=== PATIENT | female | born 1950 | race Caucasian/White ===

== ENCOUNTER 2025-05-26 20:55 | Inpatient (IN) | payer MEDICARE, OTHER ==
[~2025-05-26] VITALS: Ht 170.2 cm; Wt 94.1 kg
--- NOTE | 2025-05-26 21:34 | ED.PDOC ---
[place]. trauma (HPI) HPI Comments 74 y.o female presents to the ED via EMS for a chief complaint of right hip pain s/p mechanical fall today. Patient reports having a trip and fall outside her yard, landed on her right hip and since has limited ROM. patient does mention pain radiates to the upper right leg but does have full ROM to the lower leg and foot on examination. Patient denies any head trauma, neck, back, arm pain. Patient denied any LOC. Chief Complaint: Fall Injury Time Seen by MD: 21:19 Primary Care Provider: CARLK Reviewed notes: Nurses Notes, Medications, Allergies Allergies: Coded Allergies: NO KNOWN ALLERGIES (Unverified , 09/24/16) Information Source: Patient Mode of Arrival: Ambulatory Severity: Moderate Timing: Hours Duration: Since onset Location: (R) Hip, (R) Leg Location of laceration: None Mechanism: Fall Associated signs and symtoms: Other Past Medical History PAST MEDICAL HISTORY: Denies Surgical History: Denies all surgeries FUR COMBER History: No Pertinent FUR COMBER History Family History Family History: Unknown Social History Smoker: Cigarettes Lives In: Home Constitutional: denies: chills, diaphoresis, fatigue, fever, malaise, sweats, weakness, others EENTM: denies: blurred vision, double vision, ear bleeding, ear discharge, ear drainage, ear pain, ear ringing, eye pain, eye redness, hearing loss, mouth pain, mouth swelling, nasal discharge, nose bleeding, nose congestion, nose pain, photophobia, tearing, throat pain, throat swelling, voice changes, others Respiratory: denies: cough, hemoptysis, orthopnea, SOB at rest, shortness of breath, SOB with excertion, stridor, wheezing, others Cardiovascular: denies: chest pain, dizzy spells, diaphoresis, Dyspnea on e xertion, edema, irregular heart beat, left arm pain, lightheadedness, palpitations, PND, syncope, others Gastrointestinal: denies: abdomen distended, abdominal pain, blood streaked bowels, constipated, diarrhea, dysphagia, difficulty swallowing, hematemesis, melena, nausea, poor appetite, poor fluid intake, rectal bleeding, rectal pain, vomiting, others Genitourinary: denies: abnormal vagina bleeding, burning, dyspareunia, dysuria, flank pain, frequency, hematuria, incontinence, pain, , vagina discharge, urgency, others Neurological: denies: dizziness, fainting, headache, left sided numbness, left sided weakness, numbness, paresthesia, pre-existing deficit, right sided numbness, right sided weakness, seizure, speech problems, tingling, tremors, weakness, others Musculoskeletal: reports: others (right hip and leg pain ); denies: back pain, gout, joint pain, joint swelling, muscle pain, muscle stiffness, neck pain Integumetry: denies: bruises, change in color, change in hair/nails, dryness, laceration, lesions, lumps, rash, wounds, others Allergic/Immunocompromised: denies: Difficulty Healing, Frequent Infections, Hives, Itching, others Hematologic/Lymphatic: denies: anemia, blood clots, easy bleeding, easy bruising, swollen glands, others Endocrine: denies: excessive hunger, excessive sweating, excessive thirst, excessive urination, flushing, intolerance to cold, intolerance to heat, unexplained weight gain, unexplained weight loss, others Psychiatric: denies: anxiety, bipolar disorder, depression, hopeless, panic disorder, schizophrenia, sleepless, suicidal, others All Other Systems: Reviewed and Negative Physical Exam General Appearance: Moderate Distress, Normal HEENT: Normal ENT Inspection, Pharynx Normal, TMs Normal Neck: Full Range of Motion, Non-Tender, Normal, Normal Inspection Respiratory: Chest Non-Tender, Lungs Clear, No Accessory Muscle Use, No Respiratory Distress, Normal Breath Sounds Cardiovascular: No Edema, No JVD, No Murmur, No Gallop, Normal Peripheral Pulses, Regular Rate/Rhythm Breast Exam: Deferred Gastrointestinal: No Organomegaly, Non Tender, No Pulsatile Mass, Normal Bowel Sounds, Soft Genitalia: Deferred Pelvic: Deferred Rectal: Deferred Extremities: Tender (right sided hip ), Other (No crepitus to the right hip. Distal CMS intact of the right leg ) Musculoskeletal : Apperance: Normal Neurologic: Alert, headlight adjuster II-XII nml as Tested, No Motor Deficits, Normal Affect, Normal Mood, No Sensory Deficits Cerebellar Function: Normal Reflexes: Normal Skin: Dry, Normal Color, Warm Lymphatic: No Adenopathy Was a procedure done? Was a procedure done?: No Differential Diagnosis Multiple Trauma: Fractures, Contusion X-Ray, Labs, Meds, VS Vital Signs Date Time Temp Pulse Resp B/P (MAP) Pulse Ox O2 Delivery O2 Flow Rate FiO2 05/26/25 21:04 98.0 84 18 97/69 (78) 98 98.0 X-Ray, Labs, Meds, VS Comment CT pelvis: IMPRESSION: 1. Moderately displaced comminuted right intertrochanteric femoral fracture. END IMPRESSION: Patient will be admitted for hip fracture Patient will be given morphine for pain control Vital signs stable Time of 1ST Reevaluation: 21:34 Reevaluation 1ST: Unchanged Patient Education/Counseling: Diagnosis, Treatment, Prognosis Family Education/Counseling: No Family Present Departure 1 Departure Time of Disposition: 00:00 Impression: Primary Impression: Hip fracture, left Qualified Codes: S72.002A - Fracture of unspecified part of neck of left femur, initial encounter for closed fracture Disposition: ADMITTED INPATIENT Condition: Stable Critical Care Note Critical Care Time?: No Stability Stability form required: No I personally scribed for DEANDRE FOSS ([facility] on 05/26/25 at 21:34. Electronically submitted by Yanet Jain ([facility]). DEANDRE FOSS May 26, 2025 21:34
--- NOTE | 2025-05-26 23:32 | DVH ---
History: fall Comparison Study: None Technique: Multidetector spiral CT of the pelvis was performed from iliac crests to pubic symphysis. Axial, coronal and sagittal multiplanar reformats were performed by the technologist on a separate orkstation. Radiation Dose : CT Dose: CTDI volume is 21.72 mGy. Dose-length product is 809.71 mGy*cm Findings: Visualized bowel: Small bowel and colon are normal in caliber and distribution. The appendix is not visualized; however, no secondary findings of acute appendicitis identified. Ascites: Absent Lymphadenopathy: No pelvic or mesenteric lymphadenopathy. Pelvis Wall and Mesentery: Unremarkable. Vasculature: The visualized abdominal aorta is normal in size and caliber. Atherosclerotic vascular c alcifications. Pelvic Organs: Unremarkable Musculoskeletal: Moderately displaced comminuted right intertrochanteric femoral fracture. Bladder: Unremarkable IMPRESSION: 1. Moderately displaced comminuted right intertrochanteric femoral fracture. END IMPRESSION:
[2025-05-27] MEDS: ONDANSETRON HCL 4 MG/2 ML VIAL IV ONE (01:20)
[2025-05-27] MEDS: MORPHINE SULFATE 4 MG/ML SYR/VIAL IV ONE (01:22)
[2025-05-27 03:02] VITALS: PULSE 60; RESP 14; O2SAT 98
[2025-05-27 07:30] VITALS: PULSE 65; RESP 20; O2SAT 100
[2025-05-27 09:20] VITALS: PULSE 70; RESP 25; O2SAT 97
[2025-05-27] MEDS ORDERED: NITROGLYCERIN 0.4 MG SL TAB SL PRN (09:30)
[2025-05-27] MEDS ORDERED: MORPHINE SULFATE INJ 2 MG/ml SYRG IV PRN (09:30)
[2025-05-27] MEDS ORDERED: ACETAMINOPHEN 325 MG TAB PO PRN (09:30)
[2025-05-27] MEDS: ONDANSETRON HCL 4 MG/2 ML VIAL IV PRN (09:40)
[2025-05-27] MEDS: MORPHINE SULFATE 4 MG/ML SYR/VIAL IV PRN (09:40)
[2025-05-27 10:07] LABS: Hematocrit 40.8 % (36.0-46.0); Hemoglobin 14.4 g/dL (12.2-16.2); Mean Corpuscular Hemoglobin 31.5 pg (28.0-32.0); Mean Corpuscular Volume 89.2 fL (80.0-100.0); Nucleated Red Blood Cells % 0.0 %
[2025-05-27 10:22] LABS: Alanine Aminotransferase 12 U/L (7-40); Albumin 4.1 g/dL (3.2-4.8); Alkaline Phosphatase 114 U/L (46-116); Anion Gap 7 (5-15); BUN/Creatinine Ratio 17.2 (10.0-20.0); Blood Urea Nitrogen 16 mg/dL (9-23); Calcium 9.7 mg/dL (8.7-10.4); Chloride 102 mmol/L (98-107); Potassium 4.0 mmol/L (3.5-5.1); Sodium 140 mmol/L (136-145); Total Protein 6.2 g/dL (5.7-8.2)
[2025-05-27 10:24] LABS: Bilirubin, Total 1.7 mg/dL (0.2-1.0); Carbon Dioxide 31 mmol/L (20-31); Glucose 132 mg/dL (74-106)
[2025-05-27 10:30] LABS: Urine Protein, UAD Negative (Negative)
[2025-05-27] MEDS: ENOXAPARIN SOD 40 MG/0.4 ML SYRINGE SC SCH (11:07)
--- NOTE | 2025-05-27 16:46 | DVHHP2 ---
History of Present Illness History of Present Illness 74-year-old female presents to the ED for chief complaint of right hip pain S/P mechanical fall. Patient tripped and fell outside in her yd and landed on her right hip. Patient denies any head trauma neck or back pain. Review of Systems Constitutional: No: Fever, Chills, Sweats, Weakness, Malaise, Other Respiratory: No: Cough, Dry, Shortness of breath, SOB with excertion, Wheezing, Hemoptysis, Pleuritic Pain, Sputum, Wheezing, Other Gastrointestinal: No: Nausea, Vomiting, Abdominal Pain, Diarrhea, Constipation, Melena, Hematochezia, Other Allergies: Coded Allergies: NO KNOWN ALLERGIES (Unverified , 09/24/16) Medications Current Medications Medications Dose Ordered Sig/Latasha Route Start Time Stop Time Status Last Admin Dose Admin Enoxaparin Sodium 40 mg DAILY SC 05/27/25 10:00 05/27/25 11:07 40 MG Acetaminophen 650 mg Q6HP PRN PO 05/27/25 09:30 Nitroglycerin 0.4 mg Q5MINP PRN SL 05/27/25 09:30 Morphine Sulfate 2 mg Q30M PRN IV 05/27/25 09:30 Morphine Sulfate 4 mg Q3HPRN PRN IV 05/27/25 09:30 05/27/25 15:33 4 MG Ondansetron HCl 4 mg Q4HPRN PRN IV 05/27/25 09:30 05/27/25 15:33 4 MG Exam Vital Signs Vital Signs Date Time Temp Pulse Resp B/P (MAP) Pulse Ox O2 Delivery O2 Flow Rate FiO2 05/27/25 16:25 66 15 117/56 05/27/25 15:00 96 05/27/25 10:46 98.1 98.1 05/27/25 09:20 Nasal Cannula* 2 28 General Appearance: Alert, Oriented X3, Cooperative, No acute distress HEENT: Atraumatic Respiratory: Clear to auscultation, Normal air movement Cardiovascular: Regular rate, Normal S1, Normal S2, No murmurs Abdominal: Normal bowel sounds, Soft, No tenderness, No hepatospenomegaly Extremities: No clubbing, No cyanosis, No edema, Normal pulses, No tenderness/swelling Labs/Xrays Labs Test 05/27/25 12:47 05/27/25 09:39 05/27/25 09:18 05/27/25 01:16 Range/Units Troponin I High Sensitivity 4 </=34 ng/L White Blood Count 9.6 4.4-10.8 10^3/uL Red Blood Count 4.58 4.0-5.20 10^6/uL Hemoglobin 14.4 12.2-16.2 g/dL Hematocrit 40.8 36.0-46.0 % Mean Corpuscular Volume 89.2 80.0-100.0 fL Mean Corpuscular Hemoglobin 31.5 28.0-32.0 pg Mean Corpuscular Hemoglobin Concent 35.3 32.0-36.0 g/dL Red Cell Distribution Width 13.6 11.8-14.3 % Platelet Count 566 H 140-450 10^3/uL Mean Platelet Volume 6.3 L 6.9-10.8 fL Neutrophils (%) (Auto) 76.9 37.0-80.0 % Lymphocytes (%) (Auto) 17.0 10.0-50.0 % Monocytes (%) (Auto) 4.6 0.0-12.0 % Eosinophils (%) (Auto) 1.1 0.0-7.0 % Basophils (%) (Auto) 0.4 0.0-2.0 % Neutrophils # (Auto) 7.4 1.6-8.6 10 ^3/uL Lymphocytes # (Auto) 1.6 0.4-5.4 10 ^3/uL Monocytes # (Auto) 0.4 0-1.3 10 ^3/uL Eosinophils # (Auto) 0.1 0-0.8 10 ^3/uL Basophils # (Auto) 0 0-0.2 10 ^3/uL Nucleated Red Blood Cells 0.0 % Sodium Level 140 136-145 mmol/L Potassium Level 4.0 3.5-5.1 mmol/L Chloride Level 102 98-107 mmol/L Carbon Dioxide Level 31 20-31 mmol/L Anion Gap 7 5-15 Blood Urea Nitrogen 16 9-23 mg/dL Creatinine 0.93 0.550-1.02 mg/dL Glomerular Filtration Rate Calc 65 >90 mL/min BUN/Creatinine Ratio 17.2 10.0-20.0 Serum Glucose 132 H 74-106 mg/dL Calcium Level 9.7 8.7-10.4 mg/dL Total Bilirubin 1.7 H 0.2-1.0 mg/dL Aspartate Amino Transferase (AST) 12 L 13-40 U/L Alanine Aminotransferase (ALT) 12 7-40 U/L Alkaline Phosphatase 114 46-116 U/L Total Protein 6.2 5.7-8.2 g/dL Albumin 4.1 3.2-4.8 g/dL Urine Color Yellow Yellow Urine Clarity Clear Clear Urine pH 5.5 5.0-9.0 Urine Specific Agency 1.025 1.001-1.035 Urine Protein Negative Negative Urine Ketones Negative Negative Urine Blood Negative Negative /uL Urine Nitrite Negative Negative Urine Bilirubin Negative Negative Urine Urobilinogen Normal Negative mg/dL Urine Leukocyte Esterase Negative Negative /uL Urine RBC 1 0 - 4 /hpf Urine Microscopic WBC 1 0-5 /HPF Urine Squamous Epithelial Cells Few <5 /hpf Urine Bacteria None seen None Seen /hpf Urine Mucus Few None Seen Urine Glucose Normal Normal mg/dL POC Glucose 173 H 70-106 mg/dl SEPSIS Sepsis Screen Date sepsis recognized/suspect: May 27, 2025 Time Sepsis recognized/suspect: 305 Recent Procedure: No On Antibiotic Therapy: No Respiratory Rate >20: No Heart Rate >90: No Temp<36 C (96.8 F) or >38.3 C: No SBP <90 or MAP <65 mmHG: No New Acute Mental Status Change: No Is the patient on CPAP, BIPAP,: No Physician Orders Allergies (05/27/25 09:18) Enoxaparin Sodium (Lovenox) (05/27/25 10:00) Condition: Fair (05/27/25 09:18) Acetaminophen Tablet (Tylenol Tablet) (05/27/25 09:30) Nitroglycerin Sublingual (Ntrostat Subli (05/27/25 09:30) Morphine Sulfate Injection (05/27/25 09:30) Stat Ekg For Chest Pain (05/27/25 09:18) Notify Of Changes From Base (05/27/25 09:18) Training Engineer For 24 Hours (05/27/25 09:18) Emergency Dysrhythmia Protocol (05/27/25 09:18) Rhythm Strips Once Every Shift (05/27/25:18) Oxygen By Nasal Cannula (05/27/25:18) Morphine Sulfate Injection (7/21/25 09:30) Ondansetron Hcl (Zofran) (05/27/25 09:30) * Orthopedic Consult (05/27/25 09:29) Admit (05/27/25 09:45) Obtain Consent For: (05/27/25 10:20) Obtain Consent For Anesthesia (05/27/25 10:20) Npo (Nothing By Mouth) Diet (05/28/25 Breakfast) Cardiac Diet-2gna,Lofat,Lochol (05/27/25 Lunch) * Cardiology Consult (05/27/25 12:18) Vital Signs Date Time Temp Pulse Resp B/P (MAP) Pulse Ox O2 Delivery O2 Flow Rate FiO2 05/27/25 16:25 66 15 117/56 05/27/25 15:33 65 20 125/65 05/27/25 15:00 65 20 125/65 (85) 96 05/27/25 13:00 58 15 148/64 (92) 100 05/27/25 11:00 67 18 137/70 05/27/25 11:00 66 14 137/70 (92) 96 05/27/25 10:46 98.1 63 19 143/65 (91) 95 98.1 05/27/25 09:40 73 18 154/76 05/27/25 09:22 69 05/27/25 09:20 98.4 70 25 143/68 (93) 97 98.4 05/27/25 09:20 70 25 97 Nasal Cannula* 2 28 Laboratory Tests Test 05/27/25 09:39 White Blood Count 9.6 10^3/uL (4.4-10.8) Medications Medications Dose Ordered Sig/Latasha Route Start Time Stop Time Status Last Admin Dose Admin Enoxaparin Sodium 40 mg DAILY SC 05/27/25 10:00 05/27/25 11:07 40 MG Morphine Sulfate 4 mg Q3HPRN PRN IV 05/27/25 09:30 05/27/25 15:33 4 MG Ondansetron HCl 4 mg Q4HPRN PRN IV 05/27/25 09:30 05/27/25 15:33 4 MG Assessment/Plan Assessment/Plan 1. Right hip fracture Orthopedic consult, pain medication, DVT prophylaxis 2. Hypertension Continue lisinopril 5 mg 4. Hyperlipidemia Continue atorvastatin 20 Plan discussed with: Patient My Orders Orders - SPENCER ASCENCIO Procedure Category Date Status Time Allergies YESENIA 05/27/25 In Process 09:18 Enoxaparin Sodium PHA 05/27/25 In Process (Lovenox) 10:00 Condition: Fair YESENIA 05/27/25 In Process 09:18 Acetaminophen Tablet PHA 05/27/25 In Process (Tylenol Tablet) 09:30 Nitroglycerin PHA 05/27/25 In Process Sublingual (Ntrostat 09:30 Morphine Sulfate PHA 05/27/25 In Process Injection 09:30 Stat Ekg For Chest [facility] 05/27/25 In Process Pain 09:18 Notify Md Of Changes [facility] 05/27/25 In Process From Base 09:18 Training Engineer For [facility] 05/27/25 In Process 24 Hours 09:18 Emergency Dysrhythmia [facility] 05/27/25 In Process Protocol 09:18 Rhythm Strips Once [facility] 05/27/25 In Process Every Shift 09:18 Oxygen By Nasal RT 05/27/25 Transmitted Cannula 09:18 Morphine Sulfate PHA 05/27/25 In Process Injection 09:30 Ondansetron Hcl PHA 05/27/25 In Process (Zofran) 09:30 * Orthopedic Consult CONS 05/27/25 Transmitted 09:29 Admit ADMIT 05/27/25 Transmitted 09:45 * Cardiology Consult CONS 05/27/25 Transmitted 12:18 Date of Service: May 27, 2025 Billing Provider: NAHUM DUMONT MD Common Visit Codes: [id number] INP/OBS CARE (MOD) SPENCER ASCENCIO BLOCK CUBER May 27, 2025 16:46
[2025-05-27 19:30] VITALS: PULSE 69; RESP 17; O2SAT 94
[2025-05-27] MEDS ORDERED: DEXTROSE (50%) 50ML SYRG IV PRN (19:30)
--- NOTE | 2025-05-27 21:24 | DVHINCON2 ---
Consult Note Consult Consult Note History of Present Illness: Ms. Diamond is a 74-year-old female who presented to the emergency department following a ground-level fall early this morning. She was evaluated in the ED where imaging, including a CT scan, confirmed a right hip fracture. Orthopedic consultation was requested for further management. The patient reports independent ambulation prior to the fall, without the use of any assistive devices. She denies any prior history of falls, and states no history of cardiac or pulmonary disease. She has a history of type 2 diabetes mellitus, reportedly well-controlled on oral metformin. She also reports a significant smoking history of approximately one pack per day. The patient states that her last oral intake was yesterday morning. --- Physical Examination: General: Alert, oriented, in mild distress due to pain Right Lower Extremity: Right lower extremity is externally rotated and appears shortened Tenderness to palpation over the right groin and hip region No open wounds or signs of external trauma Grossly neurovascularly intact distally CT PELVIS : Moderately displaced comminuted right intertrochanteric femoral fracture. --- Assessment: comminuted right intertrochanteric femoral fracture confirmed on CT imaging in the setting of a ground-level fall. Given patient's good pre-injury ambulatory status and absence of major medical contraindications, surgical fixation is indicated. --- Case discussed with Oncall Dr. Shin who agreed, Dr Zapata will be doing this case on 05/28/2025 morning Plan: Patient to be admitted to inpatient team ER/Hospitalist team recs: Patient to NPO after midnight tonight Cardiac clearance needed ( Consult placed this morning) Xray right hip ordered Informed consent obtained for surgical intervention: Right hip Troch nailing Procedure, risks, benefits, and alternatives discussed in detail with the patient All questions answered, and the patient voiced understanding and agreement with the plan Preoperative labs and medical clearance as indicated by hospitalist team Schedule for operative management pending OR availability on 05/28/2025 Plan discussed with: Patient Visit Coding Surgery Date of Service if different f: May 27, 2025 Billing Provider: CHARLES DEVI Surgery Visit Codes: [id number] - INP CONSULT <55 MIN CHARLES DEVI May 27, 2025 21:24
[2025-05-27] MEDS: InsuLIN REG 1unit/0.01ml Soln (100units/ml) SC SCH (22:00)
[2025-05-27] MEDS: ACCU-CHEK COMFORT CURVE STRIP VI SCH (22:05)
[2025-05-27] MEDS: ATORVASTATIN 20 MG TAB PO SCH (22:06)
--- NOTE | 2025-05-27 22:40 | DVH ---
CLINICAL INDICATION: right hip fracture surgical planning TECHNIQUE: 5 radiographic views of the right hip were obtained. Comparison: None FINDINGS/IMPRESSION: Mildly displaced intertrochanteric fracture proximal right femur.
--- NOTE | 2025-05-27 23:57 | DVHINCON2 ---
Date of service: May 27, 2025 Referring Physician Chad Roberts Reason for Consultation Cardiac clearance History of Present Illness This is a 74 year old female with PMH of HTN who was brought in by EMS due to complaints of right hip pain s/p mechanical fall today. Patient reports having a trip and fall outside her yard, landed on her right hip and since has limited ROM. Patient does mention pain radiates to the upper right leg. Patient denies any head trauma or LOC. CT pelvis shows moderately displaced comminuted right intertrochanteric femoral fracture. Right hip x-ray shows a moderately displaced comminuted right intertrochanteric femoral fracture. Troponin is negative x3. CBC and chemistry are unremarkable. Patient was admitted to the hospital. I am asked to consult on this patient. Allergies: Coded Allergies: NO KNOWN ALLERGIES (Unverified , 09/24/16) Current Medications Current Medications Medications (Trade) Dose Ordered Sig/Latasha Route PRN Reason Start Time Stop Time Status Last Admin Enoxaparin Sodium (Lovenox) 40 mg DAILY SC 05/27/25 10:00 05/27/25 11:07 Acetaminophen (Tylenol Tablet) 650 mg Q6HP PRN PO PAIN SCALE 1-3 OR TEMP>100.4 05/27/25 09:30 Nitroglycerin (Ntrostat Sublingual) 0.4 mg Q5MINP PRN SL FOR CHEST PAIN 05/27/25 09:30 Morphine Sulfate 2 mg Q30M PRN IV FOR CHEST PAIN 05/27/25 09:30 Morphine Sulfate 4 mg Q3HPRN PRN IV MODERATE PAIN (4-6 PAIN SCALE) 05/27/25 09:30 05/27/25 20:03 Ondansetron HCl (Zofran) 4 mg Q4HPRN PRN IV NAUSEA / VOMITING 05/27/25 09:30 05/27/25 20:02 Diagnostic Test (Pha) (Accu-Chek Comfort Curve T) 1 strip ACHS 05/27/25 22:00 05/27/25 22:05 Insulin Human Regular (InsuLIN R) ACHS SC 05/27/25 22:00 Dextrose 50 ml UD PRN IV Blood Sugar LESS THAN 60 05/27/25 19:30 Atorvastatin Calcium (Lipitor) 20 mg HS PO 05/27/25 22:00 05/27/25 22:06 Lisinopril (Zestril Tablet) 5 mg DAILY PO 05/28/25 10:00 Review of Systems Constitutional: denies: chills, diaphoresis, fatigue, fever, malaise, sweats, weakness, others EENTM: denies: blurred vision, double vision, ear bleeding, ear discharge, ear drainage, ear pain, ear ringing, eye pain, eye redness, hearing loss, mouth pain, mouth swelling, nasal discharge, nose bleeding, nose congestion, nose pain, photophobia, tearing, throat pain, throat swelling, voice changes, others Respiratory: denies: cough, hemoptysis, orthopnea, SOB at rest, shortness of breath, SOB with excertion, stridor, wheezing, others Cardiovascular: denies: chest pain, dizzy spells, diaphoresis, Dyspnea on exertion, edema, irregular heart beat, left arm pain, lightheadedness, palpitations, PND, syncope, others Gastrointestinal: denies: abdomen distended, abdominal pain, blood streaked bowels, constipated, diarrhea, dysphagia, difficulty swallowing, hematemesis, melena, nausea, poor appetite, poor fluid intake, rectal bleeding, rectal pain, vomiting, others Genitourinary: denies: abnormal vagina bleeding, burning, dyspareunia, dysuria, flank pain, frequency, hematuria, incontinence, pain, , vagina discharge, urgency, others Neurological: denies: dizziness, fainting, headache, left sided numbness, left sided weakness, numbness, paresthesia, pre-existing deficit, right sided numbness, right sided weakness, seizure, speech problems, tingling, tremors, weakness, others Musculoskeletal: reports: others (right hip and leg pain ); denies: back pain, gout, joint pain, joint swelling, muscle pain, muscle stiffness, neck pain Integumetry: denies: bruises, change in color, change in hair/nails, dryness, laceration, lesions, lumps, rash, wounds, others Allergic/Immunocompromised: denies: Difficulty Healing, Frequent Infections, Hives, Itching, others Hematologic/Lymphatic: denies: anemia, blood clots, easy bleeding, easy bruisin g, swollen glands, others Endocrine: denies: excessive hunger, excessive sweating, excessive thirst, excessive urination, flushing, intolerance to cold, intolerance to heat, unexplained weight gain, unexplained weight loss, others Psychiatric: denies: anxiety, bipolar disorder, depression, hopeless, panic disorder, schizophrenia, sleepless, suicidal, others All Other Systems: Reviewed and Negative Vital Signs Vital Signs Date Time Temp Pulse Resp B/P (MAP) Pulse Ox O2 Delivery O2 Flow Rate FiO2 05/27/25 20:41 74 12 163/67 05/27/25 19:30 94 Nasal Cannula* 2 28 05/27/25 19:30 99.2 99.2 Physical Exam GENERAL: Alert and oriented x 3. No acute distress. EYES: PERRL, EOMI. Anicteric. HENT: Moist mucous membranes. LUNGS: Clear to auscultation bilaterally. CARDIOVASCULAR: Regular rate and rhythm. ABDOMEN: Soft, non-tender and non-distended. EXTREMITIES: RLE TTP. NEUROLOGIC: No focal neurological deficits. SKIN: Warm, dry. Labs/Diagnostic Data Labs Test 05/27/25 21:57 05/27/25 12:47 05/27/25 09:39 05/27/25 09:18 Range/Units POC Glucose 227 H 70-106 mg/dl Troponin I High Sensitivity 4 </=34 ng/L White Blood Count 9.6 4.4-10.8 10^3/uL Red Blood Count 4.58 4.0-5.20 10^6/uL Hemoglobin 14.4 12.2-16.2 g/dL Hematocrit 40.8 36.0-46.0 % Mean Corpuscular Volume 89.2 80.0-100.0 fL Mean Corpuscular Hemoglobin 31.5 28.0-32.0 pg Mean Corpuscular Hemoglobin Concent 35.3 32.0-36.0 g/dL Red Cell Distribution Width 13.6 11.8-14.3 % Platelet Count 566 H 140-450 10^3/uL Mean Platelet Volume 6.3 L 6.9-10.8 fL Neutrophils (%) (Auto) 76.9 37.0-80.0 % Lymphocytes (%) (Auto) 17.0 10.0-50.0 % Monocytes (%) (Auto) 4.6 0.0-12.0 % Eosinophils (%) (Auto) 1.1 0.0-7.0 % Basophils (%) (Auto) 0.4 0.0-2.0 % Neutrophils # (Auto) 7.4 1.6-8.6 10 ^3/uL Lymphocytes # (Auto) 1.6 0.4-5.4 10 ^3/uL Monocytes # (Auto) 0.4 0-1.3 10 ^3/uL Eosinophils # (Auto) 0.1 0-0.8 10 ^3/uL Basophils # (Auto) 0 0-0.2 10 ^3/uL Nucleated Red Blood Cells 0.0 % Sodium Level 140 136-145 mmol/L Potassium Level 4.0 3.5-5.1 mmol/L Chloride Level 102 98-107 mmol/L Carbon Dioxide Level 31 20-31 mmol/L Anion Gap 7 5-15 Blood Urea Nitrogen 16 9-23 mg/dL Creatinine 0.93 0.550-1.02 mg/dL Glomerular Filtration Rate Calc 65 >90 mL/min BUN/Creatinine Ratio 17.2 10.0-20.0 Serum Glucose 132 H 74-106 mg/dL Calcium Level 9.7 8.7-10.4 mg/dL Total Bilirubin 1.7 H 0.2-1.0 mg/dL Aspartate Amino Transferase (AST) 12 L 13-40 U/L Alanine Aminotransferase (ALT) 12 7-40 U/L Alkaline Phosphatase 114 46-116 U/L Total Protein 6.2 5.7-8.2 g/dL Albumin 4.1 3.2-4.8 g/dL Urine Color Yellow Yellow Urine Clarity Clear Clear Urine pH 5.5 5.0-9.0 Urine Specific [place] 1.025 1.001-1.035 Urine Protein Negative Negative Urine Ketones Negative Negative Urine Blood Negative Negative /uL Urine Nitrite Negative Negative Urine Bilirubin Negative Negative Urine Urobilinogen Normal Negative mg/dL Urine Leukocyte Esterase Negative Negative /uL Urine RBC 1 0 - 4 /hpf Urine Microscopic WBC 1 0-5 /HPF Urine Squamous Epithelial Cells Few <5 /hpf Urine Bacteria None seen None Seen /hpf Urine Mucus Few None Seen Urine Glucose Normal Normal mg/dL Assessment Right hip fracture. Hypertension. Plan/Recommendation I agree with your ongoing assessment and care of plan. Lipitor. DVT prophylactics. Lisinopril. Morphine for pain. Nitro SL. Additional plan as per the hospital course. A total of 45 minutes was spent reviewing the patient record, examining the patient, making a diagnostic and therapeutic plan, discussing this plan with medical personnel, following up on diagnostic studies and following the patient for clinical stability excluding any and all procedures. At least 50% of this time was spent in direct, [id number] contact. Plan discussed with: Patient MIR WILSON MD May 27, 2025 22:41
[2025-05-28 01:55] VITALS: PULSE 72; RESP 13; O2SAT 94
[2025-05-28 06:46] LABS: Hematocrit 40.3 % (36.0-46.0); Hemoglobin 14.0 g/dL (12.2-16.2); Mean Corpuscular Hemoglobin 31.1 pg (28.0-32.0); Mean Corpuscular Volume 89.7 fL (80.0-100.0); Nucleated Red Blood Cells % 0.0 %
[2025-05-28 07:04] LABS: Alanine Aminotransferase 10 U/L (7-40); Albumin 3.9 g/dL (3.2-4.8); Alkaline Phosphatase 95 U/L (46-116); Anion Gap 9 (5-15); BUN/Creatinine Ratio 15.1 (10.0-20.0); Blood Urea Nitrogen 16 mg/dL (9-23); Calcium 9.8 mg/dL (8.7-10.4); Carbon Dioxide 30 mmol/L (20-31); Chloride 98 mmol/L (98-107); Potassium 4.0 mmol/L (3.5-5.1); Sodium 137 mmol/L (136-145); Total Protein 6.0 g/dL (5.7-8.2)
[2025-05-28 07:07] LABS: Bilirubin, Total 1.6 mg/dL (0.2-1.0); Glucose 176 mg/dL (74-106)
[2025-05-28 07:08] LABS: INR 1.03 (0.9-1.15); Partial Thromboplastin Time 29.9 SEC (24.5-34.5); Prothrombin Time 10.9 sec (9.3-11.8)
--- NOTE | 2025-05-28 09:46 | ECG ---
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
--- NOTE | 2025-05-28 09:53 | DVH ---
CHEST RADIOGRAPH Indication: SURGERY Technique: Single frontal view of the chest was obtained COMPARISON: None FINDINGS: Lines and Tubes: None Lungs: Clear Pleura: No effusion. No pneumothorax. Cardiomediastinal contours: Unremarkable Bones: Unremarkable IMPRESSION: No acute disease.
[2025-05-28] MEDS: LISINOPRIL 5 MG TAB PO SCH (10:15)
[2025-05-28] MEDS: SODIUM CHLORIDE 0.9% 1,000 ML IV SCH (10:34)
--- NOTE | 2025-05-28 12:10 | DVHCONRES ---
Date Seen: May 28, 2025 Resident Creating Document: MAYCOL LYLE RESDIENT History of Present Illness This is a 74-year-old female with past medical history of hypertension, dyslipidemia and diabetes came to the hospital due to right hip and. Per patient, she had tripped and landed on the right side, subsequently she got right hip pain. She denies dose of consciousness, chest pain, shortness of breath, nausea, vomiting or blurry vision. She does not report any previous heart condition in the past. Cardiology consulted for preop evaluation. Home meds: Atorvastatin, lisinopril and metformin Allergies: Coded Allergies: NO KNOWN ALLERGIES (Unverified , 09/24/16) Home Meds Reported Medications Cholecalciferol (VITAMIN D) 5,000 Unit Tab, 5000 UNIT OR DAILY, TAB 05/28/25 Atorvastatin Calcium (ATORVASTATIN CALCIUM) 10 Mg Tab, 1 TAB PO DAILY, #30 TAB 5 Refills 05/28/25 Metformin Hydrochloride (Metformin Hcl) 500 Mg Tab, 500 MG PO DAILY for 30 Days, MG 05/28/25 Current Medications Current Medications Medications (Trade) Dose Ordered Sig/Latasha Route PRN Reason Start Time Stop Time Status Last Admin Diagnostic Test (Pha) (Accu-Chek Comfort Curve T) 1 strip ACHS 05/27/25 22:00 05/28/25 11:36 Insulin Human Regular (InsuLIN R) ACHS SC 05/27/25 22:00 05/28/25 11:40 Dextrose 50 ml UD PRN IV Blood Sugar LESS THAN 60 05/27/25 19:30 Atorvastatin Calcium (Lipitor) 20 mg HS PO 05/27/25 22:00 05/27/25 22:06 Lisinopril (Zestril Tablet) 5 mg DAILY PO 05/28/25 10:00 05/28/25 10:15 Sodium Chloride 1,000 ml @ 60 mls/hr [id number] IV 05/28/25 10:30 05/28/25 10:34 Vital Signs Vital Signs Date Time Temp Pulse Resp B/P (MAP) Pulse Ox O2 Delivery O2 Flow Rate FiO2 05/28/25 11:42 84 12 144/68 05/28/25 09:23 100 05/28/25 08:00 99.1 99.1 05/28/25 08:00 Nasal Cannula* 2 28 Physical Exam General Appearance: Alert, Oriented X3, Cooperative, No acute distress HEENT: Atraumatic, PERRLA, EOMI, Mucous membrane moist/pink Respiratory: Clear to auscultation, Normal air movement Cardiovascular: Regular rate, Normal S1, Normal S2, No murmurs, no chest wall tenderness Abdominal: Normal bowel sounds, Soft, No tenderness, No hepatospenomegaly, No masses Extremities: Decreased range of motion of right side due to pain. Skin: No rashes, No breakdown, No significant lesion Neuro: Normal gait, Normal speech, Strength at 5/5 X4 ext, Normal tone, Sensation intact, Cranial nerves 3-12 NL, Reflexes 2+ Psych/Mental Status: Mental status NL, Mood NL Labs/Diagnostic Data Labs Test 05/28/25 11:30 05/28/25 06:03 05/27/25 12:47 05/27/25 09:18 Range/Units POC Glucose 164 H 70-106 mg/dl White Blood Count 10.1 4.4-10.8 10^3/uL Red Blood Count 4.49 4.0-5.20 10^6/uL Hemoglobin 14.0 12.2-16.2 g/dL Hematocrit 40.3 36.0-46.0 % Mean Corpuscular Volume 89.7 80.0-100.0 fL Mean Corpuscular Hemoglobin 31.1 28.0-32.0 pg Mean Corpuscular Hemoglobin Concent 34.6 32.0-36.0 g/dL Red Cell Distribution Width 13.4 11.8-14.3 % Platelet Count 587 H 140-450 10^3/uL Mean Platelet Volume 6.5 L 6.9-10.8 fL Neutrophils (%) (Auto) 77.3 37.0-80.0 % Lymphocytes (%) (Auto) 15.5 10.0-50.0 % Monocytes (%) (Auto) 5.8 0.0-12.0 % Eosinophils (%) (Auto) 1.1 0.0-7.0 % Basophils (%) (Auto) 0.3 0.0-2.0 % Neutrophils # (Auto) 7.8 1.6-8.6 10 ^3/uL Lymphocytes # (Auto) 1.6 0.4-5.4 10 ^3/uL Monocytes # (Auto) 0.6 0-1.3 10 ^3/uL Eosinophils # (Auto) 0.1 0-0.8 10 ^3/uL Basophils # (Auto) 0 0-0.2 10 ^3/uL Nucleated Red Blood Cells 0.0 % Prothrombin Time 10.9 9.3-11.8 sec Prothrombin Time INR 1.03 0.9-1.15 Activated Partial Thromboplast Time 29.9 24.5-34.5 SEC Sodium Level 137 136-145 mmol/L Potassium Level 4.0 3.5-5.1 mmol/L Chloride Level 98 98-107 mmol/L Carbon Dioxide Level 30 20-31 mmol/L Anion Gap 9 5-15 Blood Urea Nitrogen 16 9-23 mg/dL Creatinine 1.06 H 0.550-1.02 mg/dL Glomerular Filtration Rate Calc 55 >90 mL/min BUN/Creatinine Ratio 15.1 10.0-20.0 Serum Glucose 176 H 74-106 mg/dL Calcium Level 9.8 8.7-10.4 mg/dL Total Bilirubin 1.6 H 0.2-1.0 mg/dL Aspartate Amino Transferase (AST) 10 L 13-40 U/L Alanine Aminotransferase (ALT) 10 7-40 U/L Alkaline Phosphatase 95 46-116 U/L Total Protein 6.0 5.7-8.2 g/dL Albumin 3.9 3.2-4.8 g/dL Troponin I High Sensitivity 4 </=34 ng/L Urine Color Yellow Yellow Urine Clarity Clear Clear Urine pH 5.5 5.0-9.0 Urine Specific [place] 1.025 1.001-1.035 Urine Protein Negative Negative Urine Ketones Negative Negative Urine Blood Negative Negative /uL Urine Nitrite Negative Negative Urine Bilirubin Negative Negative Urine Urobilinogen Normal Negative mg/dL Urine Leukocyte Esterase Negative Negative /uL Urine RBC 1 0 - 4 /hpf Urine Microscopic WBC 1 0-5 /HPF Urine Squamous Epithelial Cells Few <5 /hpf Urine Bacteria None seen None Seen /hpf Urine Mucus Few None Seen Urine Glucose Normal Normal mg/dL Assessment Right hip fracture Diabetes Hypertension Dyslipidemia * X-ray shows right intertrochanteric femoral fracture * EKGs shows normal sinus rhythm with no significant ST or T-wave changes * Serial trop I is within normal limits * Revised cardiac risk index (the criteria): 0 * Metabolic equivalents (MET): >4 Plan/recommendation (case discussed with Dr. Hu) * Patient is at low risk of cardiovascular event for moderate risk surgery * The patient does not need further cardiology workup at the moment * Discharge plan per primary team Thank you for giving us the opportunity to take care of your patient. Please call back if you have any questions/concerns. Plan discussed with: Patient, Other (RN) MAYCOL LYLE May 28, 2025 12:10
[2025-05-28 13:58] VITALS: BP 116/67; PULSE 92; RESP 16; TEMP 98.3; O2SAT 98
[2025-05-28 14:15] VITALS: BP 116/67; PULSE 92; RESP 16; TEMP 98.3; O2SAT 98
[2025-05-28] MEDS ORDERED: METF-370 PO (15:44)
[2025-05-28] MEDS ORDERED: ATOR10TA52 PO (15:44)
[2025-05-28] MEDS ORDERED: CHOL500021 OR (15:44)
[2025-05-28 17:04] VITALS: BP 133/85; PULSE 81; RESP 14; TEMP 98.8; O2SAT 95
--- NOTE | 2025-05-28 18:50 | DVHPN2 ---
Progress Note Date Seen: May 28, 2025 Medical Necessity Reason Pt with a Central, PICC or Fol: No Subjective Review of Systems: CVS:Normal, RESPIRATORY:Normal, GI:Normal Objective vital signs Vital Sign Date Time Temp Pulse Resp B/P (MAP) Pulse Ox O2 Delivery O2 Flow Rate FiO2 05/28/25 18:22 81 14 133/85 05/28/25 17:04 98.8 95 98.8 05/28/25 14:15 Nasal Cannula* 2 28 medications Current Medications Medications Dose Ordered Sig/Latasha Route Start Time Stop Time Status Last Admin Dose Admin Enoxaparin Sodium 40 mg DAILY SC 05/27/25 10:00 05/28/25 10:16 40 MG Acetaminophen 650 mg Q6HP PRN PO 05/27/25 09:30 Nitroglycerin 0.4 mg Q5MINP PRN SL 05/27/25 09:30 Morphine Sulfate 2 mg Q30M PRN IV 05/27/25 09:30 Morphine Sulfate 4 mg Q3HPRN PRN IV 05/27/25 09:30 05/28/25 18:22 4 MG Ondansetron HCl 4 mg Q4HPRN PRN IV 05/27/25 09:30 05/28/25 10:54 4 MG Diagnostic Test (Pha) 1 strip ACHS 05/27/25 22:00 05/28/25 17:00 1 STRIP Insulin Human Regular ACHS SC 05/27/25 22:00 05/28/25 18:21 3 UNITS Dextrose 50 ml UD PRN IV 05/27/25 19:30 Atorvastatin Calcium 20 mg HS PO 05/27/25 22:00 05/27/25 22:06 20 MG Lisinopril 5 mg DAILY PO 05/28/25 10:00 05/28/25 10:15 5 MG Sodium Chloride 1,000 ml @ 60 mls/hr [id number] IV 05/28/25 10:30 05/28/25 14:57 60 MLS/HR Examination: GENERAL:Normal, LUNGS:Normal, CVS:Normal, ABDOMEN:Normal, SKIN:Normal, NEURO:Normal laboratory and microbiology Laboratory Tests 05/28/25 06:03 Test 05/28/25 06:03 Range/Units Serum Glucose 176 H 74-106 mg/dL Labs and/or images reviewed: Labs reviewed by me, Image(s) reviewed by me Problem List/Assessment/Plan Problem List/Assessment/Plan 1. Right hip fracture Orthopedic consult, pain medication, DVT prophylaxis 2. Hypertension Continue lisinopril 5 mg 4. Hyperlipidemia Continue atorvastatin 20 5. Type 2 diabetes Insulin sliding scale Subjective: awake and alert Objective: Patient was admitted for right hip fracture. Patient was seen by orthopedic surgeon who will be planning for ORIF tomorrow. Patient was deemed low risk by Cardiology for surgery. Plan: Pain medication, planned for ORIF of right hip as per orthopedic, insulin sliding scale, continue home meds Plan discussed with: Patient My Orders My Orders Orders - SPENCER ASCENCIO Procedure Category Date Status Time Glucose Blood PHA 05/27/25 In Process (Accu-Chek Comfort 22:00 Insulin R (Human) PHA 05/27/25 In Process (Insulin R) 22:00 Dextrose 50% Syringe PHA 05/27/25 In Process 19:30 Atorvastatin (Lipitor) PHA 05/27/25 In Process 22:00 Lisinopril Tablet PHA 05/28/25 In Process (Zestril Tablet) 10:00 Sodium Chloride 0.9% PHA 05/28/25 In Process 10:30 Education - Smoking YESENIA 05/28/25 In Process Cessation 15:39 * Smoking Cessation CONS 05/28/25 Transmitted Consult 15:39 Date of Service: May 28, 2025 Billing Provider: NAHUM DUMONT MD Common Visit Codes: [id number] INP/OBS CARE (MOD) SPENCER ASCENCIO May 28, 2025 18:50
[2025-05-28 20:00] VITALS: PULSE 79
--- NOTE | 2025-05-28 20:04 | DVHPN2 ---
Progress Note - Dictate Date Seen: May 28, 2025 Medical Necessity Reason Pt with a Central, PICC or Fol: No Subjective Patient was seen and evaluated in follow up. Patient is on 2 LPM NC. Patient is complaining of RLE pain. Patient scheduled for right hip troch nailing. The patient is cardiac clear for surgery. Telemetry reviewed. vital signs Vital Sign Date Time Temp Pulse Resp B/P (MAP) Pulse Ox O2 Delivery O2 Flow Rate FiO2 05/28/25 12:00 91 05/28/25 12:00 15 137/61 (86) 92 05/28/25 08:00 99.1 99.1 05/28/25 08:00 Nasal Cannula* 2 28 medications Current Medications Medications Dose Ordered Sig/Latasha Route Start Time Stop Time Status Last Admin Dose Admin Enoxaparin Sodium 40 mg DAILY SC 05/27/25 10:00 05/28/25 10:16 40 MG Acetaminophen 650 mg Q6HP PRN PO 05/27/25 09:30 Nitroglycerin 0.4 mg Q5MINP PRN SL 05/27/25 09:30 Morphine Sulfate 2 mg Q30M PRN IV 05/27/25 09:30 Morphine Sulfate 4 mg Q3HPRN PRN IV 05/27/25 09:30 05/28/25 10:55 4 MG Ondansetron HCl 4 mg Q4HPRN PRN IV 05/27/25 09:30 05/28/25 10:54 4 MG Diagnostic Test (Pha) 1 strip ACHS 05/27/25 22:00 05/28/25 11:36 1 STRIP Insulin Human Regular ACHS SC 05/27/25 22:00 05/28/25 11:40 3 UNITS Dextrose 50 ml UD PRN IV 05/27/25 19:30 Atorvastatin Calcium 20 mg HS PO 05/27/25 22:00 05/27/25 22:06 20 MG Lisinopril 5 mg DAILY PO 05/28/25 10:00 05/28/25 10:15 5 MG Sodium Chloride 1,000 ml @ 60 mls/hr [id number] IV 05/28/25 10:30 05/28/25 10:34 60 MLS/HR objective GENERAL: Alert and oriented x 3. No acute distress. EYES: PERRL, EOMI. Anicteric. HENT: Moist mucous membranes. LUNGS: Clear to auscultation bilaterally. CARDIOVASCULAR: Regular rate and rhythm. ABDOMEN: Soft, non-tender and non-distended. EXTREMITIES: Decreased ROM, RLE TTP. NEUROLOGIC: No focal neurological deficits. SKIN: Warm, dry. laboratory and microbiology Laboratory Tests 05/28/25 06:03 Test 05/28/25 06:03 Range/Units Serum Glucose 176 H 74-106 mg/dL Problem List Right hip fracture. Hypertension. Diabetes mellitus. Dyslipidemia. Assessment/Plan Continued all current supportive medical care. Patient is cardiac clear for surgery. Lipitor. DVT prophylactics. Lisinopril. Morphine for pain. Nitro SL. Additional plan as per the hospital course. Plan discussed with: Patient MIR WILSON MD May 28, 2025 14:06
[2025-05-28 21:00] VITALS: BP 132/86; PULSE 78; RESP 16; TEMP 98.6; O2SAT 96
[2025-05-29] VITALS (8 sets, daily range): BP systolic 105–137; BP diastolic 54–72; PULSE 46–84; RESP 12–18; TEMP 97.4–98.9; O2SAT 93–100
[2025-05-29] MEDS: ceFAZolin 2 GM/D5W50ml 50 ML IV ONE (07:05)
[2025-05-29] MEDS: BUPIVACAINE 0.5% P/F INJ 10 ML VIAL ONE (07:07)
[2025-05-29] MEDS: BUPIVACAINE 0.25% INJ 50ML VIAL ONE (07:13)
[2025-05-29] MEDS ORDERED: MIDAZOLAM HCL 2MG/2ML 2ml VIAL (1mg/ml) ONE (07:18)
[2025-05-29] MEDS ORDERED: ONDANSETRON HCL 4 MG/2 ML VIAL ONE (07:18)
[2025-05-29] MEDS ORDERED: fentaNYL CITRATE 100 MCG/2 ML VL ONE (07:18)
[2025-05-29] MEDS ORDERED: METOCLOPRAMIDE HCL 5MG/ml INJ 2ml VIAL ONE (07:18)
[2025-05-29] MEDS ORDERED: LIDOCAINE 2% (LOCAL ANESTH.) PF 5ml SDV ONE (07:18)
[2025-05-29] MEDS ORDERED: ROCURONIUM 10MG/ML 10ML VIAL IV ONE (07:19)
[2025-05-29] MEDS ORDERED: PROPOFOL 10 MG/ML 20 ML IV ONE (07:19)
[2025-05-29] MEDS ORDERED: PHENYLEPHRINE HCL 10 MG/ML VL ONE (07:46)
[2025-05-29] MEDS ORDERED: HYDROmorphone HCL 2 MG/ML VL/or syr ONE (08:00)
[2025-05-29] MEDS ORDERED: LIDOCAINE W/ EPINEPHRINE 1% 20ML VIAL ONE (08:08)
[2025-05-29] MEDS ORDERED: SUGAMMADEX 200mg/2ml Vial (100MG/ML) IV ONE (08:18)
--- NOTE | 2025-05-29 08:19 | DVHOP2 ---
Operative Report - 2 Report Details Date: 05/29/25 Preop Diagnosis: Right proximal femur intertrochanteric fracture Postop Diagnosis: Right proximal femur intertrochanteric fracture Surgeon: Jose G Valdovinos MD Munitions Handler: Yassine BRAN Anesthesiologist: Wan FISH Anesthesia: General Implant: [employer] cephalomedullary nail short, 130 degree angle, 9 mm diameter, 95 mm hip screw, 34 mm distal locking screw Consent: The patient was informed of the risks and benefits of the procedure. These include but are not limited to complications of anesthesia, postoperative infection, incomplete relief of symptoms, recurrence of symptoms, damage to blood vessels, nerves and tendons, deep venous thrombosis, pulmonary embolism and possible need for repeat surgery in the future. Complications: None Estimated Blood Loss: 25 cc Fluids: See anesthesia record Findings: Mildly displaced right proximal femur intertrochanteric fracture Indications for Surgery: Unstable hip fracture Name of Procedure Performed Closed reduction, cephalomedullary nail right proximal femur intertrochanteric fracture with C-arm fluoroscopy Procedure Details Procedure Details: The patient was brought to the operating room and placed on the [place] table in the supine position. The patient was given general anesthetic. Preop patient received IV Ancef. Nonoperative extremity was placed in the well-leg bustillo. Operative extremity placed in boot traction. Closed reduction maneuver performed and verified with C-arm fluoroscopy in AP and lateral views. Surgical timeout performed verifying patient, laterality and procedure. Operative extremity was prepped and draped in sterile fashion. Incision was made proximal to the greater trochanter then I incised the fascia. I passed a guidewire into the proximal femur and adjusted the position based on AP and lateral views with C arm. I used the soft tissue protector and reamed over the guidewire then guidewire was removed. I then inserted the previously templated nail until appropriate depth was reached based on C-arm fluoroscopy. I then passed the hip screw cannula to skin then made skin and fascial incision and passed it to bone. I inserted a guidewire into the proximal femoral neck and head and again adjusted position based on C arm. I measured for length. I then reamed and inserted the hip screw. Guidewire and cannula were removed. I used the home delivery driver proximally to lock the nail then backed out 1/4 turn to allow sliding. I then used the distal locking cannula through the static hole passing it to skin and making skin and fascial incision then passing it to bone. I drilled and measured length off the drill bit and inserted distal locking screw. I obtained C arm views AP and lateral throughout the length of the construct to verify fr acture reduction and hardware placement. Wounds were irrigated with normal saline. Fascial tissue closed with 0 Vicryl. Subcu closed with 2-0 Vicryl. Skin closed with fadi. Wounds dressed sterilely. Patient tolerated procedure well was brought to recovery in stable condition. Condition Stable Disposition Still a Patient JOSE G VALDOVINOS MD May 29, 2025 08:19
[2025-05-29] MEDS ORDERED: NALOXONE HCL 0.4 MG/ML VIAL ONE (08:38)
[2025-05-29] MEDS: ONDANSETRON HCL 4 MG/2 ML VIAL IV ONE (09:00)
[2025-05-29] MEDS ORDERED: hydrALAZINE HCL 20 MG/ML VL IV PRN (09:00)
[2025-05-29] MEDS ORDERED: HYDROmorphone HCL 2 MG/ML VL/or syr IV PRN (09:00)
--- NOTE | 2025-05-29 09:00 | DVH ---
CLINICAL INDICATION: ORIFT RT HIP TECHNIQUE: 4 Fluoroscopic spot views of the right hip were performed. Fluoro time 33.3 seconds, rad iation dose [id number] mGym2. XY R HIP COMPLETE XRAY Comparison: XY R HIP COMPLETE XRAY on DOS: 05/27/25 FINDINGS/IMPRESSION: Status post right proximal femoral trochanteric nail placement without evidence of hardware complicat ion at this time.
--- NOTE | 2025-05-29 09:03 | DVH ---
C-ARM FLUOROSCOPY: PROCEDURE: ORIF right hip FLUOROSCOPY TIME: 33 sec DAP: 4.57 mgy FINDINGS: Spot intraoperative C arm radiographs demonstrating orif right hip. IMPRESSION: Please refer to surgical report for detailed findings.
[2025-05-29] MEDS: ACETAMINOPHEN IV 100 ML IV ONE (09:08)
[2025-05-29] MEDS: ACETAMINOPHEN IV 1000 MG/100ML (10MG/ML) IV ONE (09:09)
[2025-05-29] MEDS: LACTATED RINGER'S 1,000 ML IV SCH (10:00)
[2025-05-29] MEDS: SODIUM CHLOR 0.9% PF (SALINE LOCK) 10ML VIAL/SYR IV SCH (14:00)
[2025-05-29] MEDS: ceFAZolin 2 GM/D5W50ml 50 ML IV SCH (14:20)
--- NOTE | 2025-05-29 16:37 | DVHPN2 ---
Progress Note Date Seen: May 29, 2025 Medical Necessity Reason Pt with a Central, PICC or Fol: No Objective vital signs Vital Sign Date Time Temp Pulse Resp B/P (MAP) Pulse Ox O2 Delivery O2 Flow Rate FiO2 05/29/25 13:00 97.8 46 18 112/54 (73) 97 97.8 05/29/25 09:50 Nasal Cannula* 2 28 Total Intake and Output 05/28/25 05/28/25 05/29/25 15:00 23:00 07:00 Intake Total 180 ml 180 ml 100 ml Output Total 50 ml 350 ml Balance 180 ml 130 ml -250 ml medications Current Medications Medications Dose Ordered Sig/Latasha Route Start Time Stop Time Status Last Admin Dose Admin Acetaminophen 650 mg Q6HP PRN PO 05/27/25 09:30 Hold Nitroglycerin 0.4 mg Q5MINP PRN SL 05/27/25 09:30 Morphine Sulfate 2 mg Q30M PRN IV 05/27/25 09:30 Morphine Sulfate 4 mg Q3HPRN PRN IV 05/27/25 09:30 05/29/25 04:26 4 MG Ondansetron HCl 4 mg Q4HPRN PRN IV 05/27/25 09:30 05/28/25 10:54 4 MG Diagnostic Test (Pha) 1 strip ACHS 05/27/25 22:00 05/29/25 10:57 1 STRIP Insulin Human Regular ACHS SC 05/27/25 22:00 05/28/25 21:27 3 UNITS Dextrose 50 ml UD PRN IV 05/27/25 19:30 Atorvastatin Calcium 20 mg HS PO 05/27/25 22:00 05/28/25 21:15 20 MG Lisinopril 5 mg DAILY PO 05/28/25 10:00 05/28/25 10:15 5 MG Sodium Chloride 1,000 ml @ 60 mls/hr [id number] IV 05/28/25 10:30 Hold 05/28/25 14:57 60 MLS/HR Lactated Ringer's 1,000 ml @ 100 mls/hr Q10H IV 05/29/25 08:30 05/29/25 10:00 100 MLS/HR Sodium Chloride 10 ml Q8HR IV 05/29/25 14:00 Enoxaparin Sodium 40 mg DAILY SC 05/30/25 10:00 Acetaminophen/ Hydrocodone Bitart 1 tab Q4HP PRN PO 05/29/25 08:30 Cefazolin Sodium/ Dextrose 50 ml @ 50 mls/hr Q8HR IV 05/29/25 14:00 05/29/25 22:59 05/29/25 14:20 50 MLS/HR Examination: GENERAL:Normal, LUNGS:Normal, CVS:Normal, ABDOMEN:Normal, SKIN:Normal laboratory and microbiology Laboratory Tests 05/28/25 06:03 Test 05/28/25 06:03 Range/Units Serum Glucose 176 H 74-106 mg/dL Labs and/or images reviewed: Labs reviewed by me, Image(s) reviewed by me Problem List/Assessment/Plan Problem List/Assessment/Plan 1. Right hip fracture Orthopedic consult, pain medication, DVT prophylaxis 2. Hypertension Continue lisinopril 5 mg 4. Hyperlipidemia Continue atorvastatin 20 5. Type 2 diabetes Insulin sliding scale Subjective: awake and alert Objective: Patient was admitted for right hip fracture. Patient is S/P ORIF of right hip fracture. Plan: Pain medication, start physical therapy as per orthopedic surgeon, insulin sliding scale, continue home meds Plan discussed with: Patient Date of Service: May 29, 2025 Billing Provider: NAHUM DUMONT MD Common Visit Codes: [id number] INP/OBS CARE (MOD) SPENCER ASCENCIO CLINICAL DOCUMENTATION SPECIALIST May 29, 2025 16:37
[2025-05-29] MEDS: HYDROcodone-ACET 10/325MG TAB PO PRN (23:28)
--- NOTE | 2025-05-29 23:57 | DVHPN2 ---
Progress Note - Dictate Date Seen: May 29, 2025 Medical Necessity Reason Pt with a Central, PICC or Fol: No Subjective Patient was seen and evaluated in follow up. Patient underwent closed reduction, cephalomedullary nail right proximal femur intertrochanteric fracture by Dr. Zapata. The patient tolerated procedure well. Patient complains of pain at the surgical site. GLUC 203. Telemetry reviewed. vital signs Vital Sign Date Time Temp Pulse Resp B/P (MAP) Pulse Ox O2 Delivery O2 Flow Rate FiO2 05/29/25 13:00 97.8 46 18 112/54 (73) 97 97.8 05/29/25 09:50 Nasal Cannula* 2 28 Total Intake and Output 05/28/25 05/28/25 05/29/25 15:00 23:00 07:00 Intake Total 180 ml 180 ml 100 ml Output Total 50 ml 350 ml Balance 180 ml 130 ml -250 ml medications Current Medications Medications Dose Ordered Sig/Latasha Route Start Time Stop Time Status Last Admin Dose Admin Acetaminophen 650 mg Q6HP PRN PO 05/27/25 09:30 Hold Nitroglycerin 0.4 mg Q5MINP PRN SL 05/27/25 09:30 Morphine Sulfate 2 mg Q30M PRN IV 05/27/25 09:30 Morphine Sulfate 4 mg Q3HPRN PRN IV 05/27/25 09:30 05/29/25 04:26 4 MG Ondansetron HCl 4 mg Q4HPRN PRN IV 05/27/25 09:30 05/28/25 10:54 4 MG Diagnostic Test (Pha) 1 strip ACHS 05/27/25 22:00 05/29/25 10:57 1 STRIP Insulin Human Regular ACHS SC 05/27/25 22:00 05/28/25 21:27 3 UNITS Dextrose 50 ml UD PRN IV 05/27/25 19:30 Atorvastatin Calcium 20 mg HS PO 05/27/25 22:00 05/28/25 21:15 20 MG Lisinopril 5 mg DAILY PO 05/28/25 10:00 05/28/25 10:15 5 MG Sodium Chloride 1,000 ml @ 60 mls/hr [id number] IV 05/28/25 10:30 Hold 05/28/25 14:57 60 MLS/HR Lactated Ringer's 1,000 ml @ 100 mls/hr Q10H IV 05/29/25 08:30 05/29/25 10:00 100 MLS/HR Sodium Chloride 10 ml Q8HR IV 05/29/25 14:00 Enoxaparin Sodium 40 mg DAILY SC 05/30/25 10:00 Acetaminophen/ Hydrocodone Bitart 1 tab Q4HP PRN PO 05/29/25 08:30 Cefazolin Sodium/ Dextrose 50 ml @ 50 mls/hr Q8HR IV 05/29/25 14:00 05/29/25 22:59 05/29/25 14:20 50 MLS/HR objective GENERAL: Alert and oriented x 3. No acute distress. EYES: PERRL, EOMI. Anicteric. HENT: Moist mucous membranes. LUNGS: Clear to auscultation bilaterally. CARDIOVASCULAR: Regular rate and rhythm. ABDOMEN: Soft, non-tender and non-distended. EXTREMITIES: Decreased ROM, RLE TTP. NEUROLOGIC: No focal neurological deficits. SKIN: Warm, dry. laboratory and microbiology Laboratory Tests 05/28/25 06:03 Test 05/28/25 06:03 Range/Units Serum Glucose 176 H 74-106 mg/dL Problem List Right hip fracture. Hypertension. Diabetes mellitus. Dyslipidemia. Assessment/Plan Continued all current supportive medical care. DVT prophylactics. Lisinopril. Morphine and [place] for pain. Nitro SL. IV antibiotics as ordered. Additional plan as per the hospital course. Plan discussed with: Patient MIR WILSON MD May 29, 2025 14:47
[2025-05-30] VITALS (8 sets, daily range): BP systolic 122–162; BP diastolic 61–79; PULSE 60–84; RESP 16–18; TEMP 97.3–99.2; O2SAT 93–97
[2025-05-30 07:35] LABS: Hematocrit 35.3 % (36.0-46.0); Hemoglobin 12.5 g/dL (12.2-16.2); Mean Corpuscular Hemoglobin 31.5 pg (28.0-32.0); Mean Corpuscular Volume 89.0 fL (80.0-100.0); Nucleated Red Blood Cells % 0.0 %
[2025-05-30 07:40] LABS: Anion Gap 8 (5-15); Carbon Dioxide 29 mmol/L (20-31); Chloride 101 mmol/L (98-107); Potassium 4.4 mmol/L (3.5-5.1); Sodium 138 mmol/L (136-145)
[2025-05-30 07:41] LABS: Calcium 9.8 mg/dL (8.7-10.4)
[2025-05-30 07:46] LABS: BUN/Creatinine Ratio 22.5 (10.0-20.0); Blood Urea Nitrogen 23 mg/dL (9-23); Glucose 221 mg/dL (74-106)
[2025-05-30] MEDS: ENOXAPARIN SOD 40 MG/0.4 ML SYRINGE SC SCH (09:25)
--- NOTE | 2025-05-30 13:12 | DVHPN2 ---
Progress Note - Dictate Date Seen: May 30, 2025 Medical Necessity Reason Pt with a Central, PICC or Fol: No Subjective Patient was lying comfortably in bed during my evaluation reports some postoperative hip pain that is being well managed with the help of pain medication. Patient reports that she was able to get up and walk with the help of physical therapy and her walker yesterday as well as this morning but this morning was only able to get to her bedroom door and back to her bed due to the pain. Patient reports that she was told that she may be considered for a senior care facility depending on how she does with physical therapy today. Patient was otherwise feeling well denying any other complaints or concerns during my evaluation. vital signs Vital Sign Date Time Temp Pulse Resp B/P (MAP) Pulse Ox O2 Delivery O2 Flow Rate FiO2 05/30/25 10:49 69 16 129/68 05/30/25 08:38 97.6 97 97.6 05/30/25 08:00 Nasal Cannula* 2 28 Total Intake and Output 05/29/25 05/29/25 05/30/25 15:00 23:00 07:00 Intake Total 1050 ml 1000 ml Output Total 250 ml 400 ml 1300 ml Balance -250 ml 650 ml -300 ml medications Current Medications Medications Dose Ordered Sig/Latasha Route Start Time Stop Time Status Last Admin Dose Admin Acetaminophen 650 mg Q6HP PRN PO 05/27/25 09:30 Hold Nitroglycerin 0.4 mg Q5MINP PRN SL 05/27/25 09:30 Morphine Sulfate 2 mg Q30M PRN IV 05/27/25 09:30 Morphine Sulfate 4 mg Q3HPRN PRN IV 05/27/25 09:30 05/30/25 10:19 4 MG Ondansetron HCl 4 mg Q4HPRN PRN IV 05/27/25 09:30 05/28/25 10:54 4 MG Diagnostic Test (Pha) 1 strip ACHS 05/27/25 22:00 05/30/25 11:28 1 STRIP Insulin Human Regular ACHS SC 05/27/25 22:00 05/30/25 11:28 4 UNITS Dextrose 50 ml UD PRN IV 05/27/25 19:30 Atorvastatin Calcium 20 mg HS PO 05/27/25 22:00 05/29/25 21:30 20 MG Lisinopril 5 mg DAILY PO 05/28/25 10:00 05/30/25 09:24 5 MG Sodium Chloride 1,000 ml @ 60 mls/hr [id number] IV 05/28/25 10:30 Hold 05/28/25 14:57 60 MLS/HR Lactated Ringer's 1,000 ml @ 100 mls/hr Q10H IV 05/29/25 08:30 05/29/25 23:19 100 MLS/HR Sodium Chloride 10 ml Q8HR IV 05/29/25 14:00 05/30/25 06:24 10 ML Enoxaparin Sodium 40 mg DAILY SC 05/30/25 10:00 05/30/25 09:25 40 MG Acetaminophen/ Hydrocodone Bitart 1 tab Q4HP PRN PO 05/29/25 08:30 05/29/25 23:28 1 TAB Docusate Sodium 100 mg TIDPRN PRN PO 05/30/25 12:30 objective A&O x4 in no acute distress Hip range of motion grossly limited with pain on movement Aquacel dressing clean, dry, and intact No distal edema or calf tenderness to palpation Neurovascularly intact with cap refill less than 2 seconds laboratory and microbiology Laboratory Tests 05/30/25 06:44 Test 05/30/25 06:44 Range/Units Serum Glucose 221 H 74-106 mg/dL Assessment/Plan Continue current management as well as pain control and physical therapy and advised the patient to remain weight-bearing as tolerated with the assistance of a walker. If patient continues to have pain and instability limiting her physical activity and recovery then we agree with the recommendation to have the patient transferred to a senior care facility for further assistance with the post acute phase of her rehabilitation. I instructed the patient to follow up with our office in 10-14 days for her 1st postoperative evaluation. She understood and agreed. Plan discussed with: Patient ELVIA GONSALES May 30, 2025 13:12
[2025-05-30] MEDS: DOCUSATE SOD 100 MG CAP PO PRN (13:50)
[2025-05-30] MEDS ORDERED: DOCUSATE SOD 100 MG CAP PO SCH (14:00)
--- NOTE | 2025-05-30 15:03 | DVHPN2 ---
Progress Note Date Seen: May 30, 2025 Medical Necessity Reason Pt with a Central, PICC or Fol: No Objective vital signs Vital Sign Date Time Temp Pulse Resp B/P (MAP) Pulse Ox O2 Delivery O2 Flow Rate FiO2 05/30/25 13:00 97.6 67 16 129/72 (91) 96 97.6 05/30/25 08:00 Nasal Cannula* 2 28 Total Intake and Output 05/29/25 05/29/25 05/30/25 15:00 23:00 07:00 Intake Total 1050 ml 1000 ml Output Total 250 ml 400 ml 1300 ml Balance -250 ml 650 ml -300 ml medications Current Medications Medications Dose Ordered Sig/Latasha Route Start Time Stop Time Status Last Admin Dose Admin Acetaminophen 650 mg Q6HP PRN PO 05/27/25 09:30 Hold Nitroglycerin 0.4 mg Q5MINP PRN SL 05/27/25 09:30 Morphine Sulfate 2 mg Q30M PRN IV 05/27/25 09:30 Morphine Sulfate 4 mg Q3HPRN PRN IV 05/27/25 09:30 05/30/25 10:19 4 MG Ondansetron HCl 4 mg Q4HPRN PRN IV 05/27/25 09:30 05/28/25 10:54 4 MG Diagnostic Test (Pha) 1 strip ACHS 05/27/25 22:00 05/30/25 11:28 1 STRIP Insulin Human Regular ACHS SC 05/27/25 22:00 05/30/25 11:28 4 UNITS Dextrose 50 ml UD PRN IV 05/27/25 19:30 Atorvastatin Calcium 20 mg HS PO 05/27/25 22:00 05/29/25 21:30 20 MG Lisinopril 5 mg DAILY PO 05/28/25 10:00 05/30/25 09:24 5 MG Sodium Chloride 1,000 ml @ 60 mls/hr [id number] IV 05/28/25 10:30 Hold 05/28/25 14:57 60 MLS/HR Lactated Ringer's 1,000 ml @ 100 mls/hr Q10H IV 05/29/25 08:30 05/29/25 23:19 100 MLS/HR Sodium Chloride 10 ml Q8HR IV 05/29/25 14:00 05/30/25 14:00 10 ML Enoxaparin Sodium 40 mg DAILY SC 05/30/25 10:00 05/30/25 09:25 40 MG Acetaminophen/ Hydrocodone Bitart 1 tab Q4HP PRN PO 05/29/25 08:30 05/29/25 23:28 1 TAB Docusate Sodium 100 mg TIDPRN PRN PO 05/30/25 12:30 05/30/25 13:50 100 MG Examination: GENERAL:Normal, HEENT:Normal, LUNGS:Normal, CVS:Normal, ABDOMEN:Normal, SKIN:Normal, NEURO:Normal laboratory and microbiology Laboratory Tests 05/30/25 06:44 Test 05/30/25 06:44 Range/Units Serum Glucose 221 H 74-106 mg/dL Labs and/or images reviewed: Labs reviewed by me, Image(s) reviewed by me Problem List/Assessment/Plan Problem List/Assessment/Plan 1. Right hip fracture Orthopedic consult, pain medication, DVT prophylaxis 2. Hypertension Continue lisinopril 5 mg 4. Hyperlipidemia Continue atorvastatin 20 5. Type 2 diabetes Insulin sliding scale Subjective: awake and alert Objective: Patient was admitted for right hip fracture. Patient is S/P ORIF of right hip fracture. Patient was able to take a few steps with PT. Will plan to DC to SNF tomorrow if bed is available. Plan: Pain medication, start physical therapy as per orthopedic surgeon, insulin sliding scale, continue home meds, DC to SNF tomorrow Plan discussed with: Patient My Orders My Orders Orders - SPENCER ASCENCIO Procedure Category Date Status Time * Head Setter CONS 05/30/25 Transmitted Consult Consistent DIET 05/30/25 Transmitted Carb(Ccho)Diabetes Lunch Docusate Sodium PHA 05/30/25 In Process Capsule (Colace 12:30 Date of Service: May 30, 2025 Billing Provider: NAHUM DUMONT MD Common Visit Codes: [id number] INP/OBS CARE (MOD) SPENCER ASCENCIO May 30, 2025 15:03
[2025-05-31] VITALS (9 sets, daily range): BP systolic 134–168; BP diastolic 72–89; PULSE 65–77; RESP 16–18; TEMP 96.9–98.5; O2SAT 91–99
--- NOTE | 2025-05-31 00:03 | DVHPN2 ---
Progress Note - Dictate Date Seen: May 30, 2025 Medical Necessity Reason Pt with a Central, PICC or Fol: No Subjective Patient was seen and evaluated in follow up. Patient is complaining of right hip pain at surgical site. Patient is working with PT. Patient reported feeling constipation, last BM was on 05/26. WBC 16, GLUC 221. Telemetry reviewed. vital signs Vital Sign Date Time Temp Pulse Resp B/P (MAP) Pulse Ox O2 Delivery O2 Flow Rate FiO2 05/30/25 10:49 69 16 129/68 05/30/25 08:38 97.6 97 97.6 05/30/25 08:00 Nasal Cannula* 2 28 Total Intake and Output 05/29/25 05/29/25 05/30/25 15:00 23:00 07:00 Intake Total 1050 ml 1000 ml Output Total 250 ml 400 ml 1300 ml Balance -250 ml 650 ml -300 ml medications Current Medications Medications Dose Ordered Sig/Latasha Route Start Time Stop Time Status Last Admin Dose Admin Acetaminophen 650 mg Q6HP PRN PO 05/27/25 09:30 Hold Nitroglycerin 0.4 mg Q5MINP PRN SL 05/27/25 09:30 Morphine Sulfate 2 mg Q30M PRN IV 05/27/25 09:30 Morphine Sulfate 4 mg Q3HPRN PRN IV 05/27/25 09:30 05/30/25 10:19 4 MG Ondansetron HCl 4 mg Q4HPRN PRN IV 05/27/25 09:30 05/28/25 10:54 4 MG Diagnostic Test (Pha) 1 strip ACHS 05/27/25 22:00 05/30/25 11:28 1 STRIP Insulin Human Regular ACHS SC 05/27/25 22:00 05/30/25 11:28 4 UNITS Dextrose 50 ml UD PRN IV 05/27/25 19:30 Atorvastatin Calcium 20 mg HS PO 05/27/25 22:00 05/29/25 21:30 20 MG Lisinopril 5 mg DAILY PO 05/28/25 10:00 05/30/25 09:24 5 MG Sodium Chloride 1,000 ml @ 60 mls/hr [id number] IV 05/28/25 10:30 Hold 05/28/25 14:57 60 MLS/HR Lactated Ringer's 1,000 ml @ 100 mls/hr Q10H IV 05/29/25 08:30 05/29/25 23:19 100 MLS/HR Sodium Chloride 10 ml Q8HR IV 05/29/25 14:00 05/30/25 06:24 10 ML Enoxaparin Sodium 40 mg DAILY SC 05/30/25 10:00 05/30/25 09:25 40 MG Acetaminophen/ Hydrocodone Bitart 1 tab Q4HP PRN PO 05/29/25 08:30 05/29/25 23:28 1 TAB Docusate Sodium 100 mg TIDPRN PRN PO 05/30/25 12:30 objective GENERAL: Alert and oriented x 3. No acute distress. EYES: PERRL, EOMI. Anicteric. HENT: Moist mucous membranes. LUNGS: Clear to auscultation bilaterally. CARDIOVASCULAR: Regular rate and rhythm. ABDOMEN: Soft, non-tender and non-distended. EXTREMITIES: Decreased ROM, RLE TTP. NEUROLOGIC: No focal neurological deficits. SKIN: Warm, dry. laboratory and microbiology Laboratory Tests 05/30/25 06:44 Test 05/30/25 06:44 Range/Units Serum Glucose 221 H 74-106 mg/dL Problem List Right hip fracture. Hypertension. Diabetes mellitus. Dyslipidemia. Assessment/Plan Continued all current supportive medical care. DVT prophylactics. Lisinopril. Morphine for pain. Nitro SL. Additional plan as per the hospital course. Plan discussed with: Patient MIR WILSON MD May 30, 2025 13:31
--- NOTE | 2025-05-31 15:44 | DVHPN2 ---
Progress Note Date Seen: May 31, 2025 Medical Necessity Reason Pt with a Central, PICC or Fol: No Subjective Review of Systems: CVS:Normal, RESPIRATORY:Normal, GI:Normal, NEURO:Normal Objective vital signs Vital Sign Date Time Temp Pulse Resp B/P (MAP) Pulse Ox O2 Delivery O2 Flow Rate FiO2 05/31/25 13:00 97.8 70 18 134/72 (92) 91 97.8 05/31/25 08:00 Nasal Cannula* 2 28 Total Intake and Output 05/30/25 05/30/25 05/31/25 15:00 23:00 07:00 Intake Total 850 ml 1460 ml Output Total 900 ml 1500 ml Balance -50 ml -40 ml medications Current Medications Medications Dose Ordered Sig/Latasha Route Start Time Stop Time Status Last Admin Dose Admin Acetaminophen 650 mg Q6HP PRN PO 05/27/25 09:30 Hold Nitroglycerin 0.4 mg Q5MINP PRN SL 05/27/25 09:30 Morphine Sulfate 2 mg Q30M PRN IV 05/27/25 09:30 Morphine Sulfate 4 mg Q3HPRN PRN IV 05/27/25 09:30 05/30/25 22:28 4 MG Ondansetron HCl 4 mg Q4HPRN PRN IV 05/27/25 09:30 05/28/25 10:54 4 MG Diagnostic Test (Pha) 1 strip ACHS 05/27/25 22:00 05/31/25 13:01 1 STRIP Insulin Human Regular ACHS SC 05/27/25 22:00 05/31/25 13:01 2 UNITS Dextrose 50 ml UD PRN IV 05/27/25 19:30 Atorvastatin Calcium 20 mg HS PO 05/27/25 22:00 05/30/25 21:40 20 MG Lisinopril 5 mg DAILY PO 05/28/25 10:00 05/31/25 10:01 5 MG Sodium Chloride 1,000 ml @ 60 mls/hr [id number] IV 05/28/25 10:30 Hold 05/28/25 14:57 60 MLS/HR Lactated Ringer's 1,000 ml @ 100 mls/hr Q10H IV 05/29/25 08:30 05/31/25 06:41 100 MLS/HR Sodium Chloride 10 ml Q8HR IV 05/29/25 14:00 05/31/25 05:26 10 ML Enoxaparin Sodium 40 mg DAILY SC 05/30/25 10:00 05/31/25 10:01 40 MG Acetaminophen/ Hydrocodone Bitart 1 tab Q4HP PRN PO 05/29/25 08:30 05/31/25 10:00 1 TAB Docusate Sodium 100 mg TIDPRN PRN PO 05/30/25 12:30 05/30/25 13:50 100 MG Examination: GENERAL:Normal, LUNGS:Normal, CVS:Normal, ABDOMEN:Normal, SKIN:Normal laboratory and microbiology Laboratory Tests 05/30/25 06:44 Test 05/30/25 06:44 Range/Units Serum Glucose 221 H 74-106 mg/dL Labs and/or images reviewed: Labs reviewed by me, Image(s) reviewed by me Problem List/Assessment/Plan Problem List/Assessment/Plan 1. Right hip fracture Orthopedic consult, pain medication, DVT prophylaxis 2. Hypertension Continue lisinopril 5 mg 4. Hyperlipidemia Continue atorvastatin 20 5. Type 2 diabetes Insulin sliding scale Subjective: awake and alert Objective: Patient was admitted for right hip fracture. Patient is S/P ORIF of right hip fracture. Patient has been working with physical therapy. Plan: Pain medication, start physical therapy as per orthopedic surgeon, insulin sliding scale, continue home meds, discharge to SNF Plan discussed with: Patient My Orders My Orders Orders - SPENCER ASCENCIO Procedure Category Date Status Time D/C Castro PATTERSON 05/31/25 In Process 13:10 Discharge DISCHARGE 05/31/25 Transmitted 13:11 Date of Service: May 31, 2025 Billing Provider: NAHUM DUMONT MD Common Visit Codes: [id number] INP/OBS CARE (MOD) SPENCER ASCENCIO May 31, 2025 15:44
--- NOTE | 2025-05-31 23:42 | DVHPN2 ---
Progress Note - Dictate Date Seen: May 31, 2025 Medical Necessity Reason Pt with a Central, PICC or Fol: No Subjective Patient was seen and evaluated in follow up. Patient is complaining of right hip pain. BS are WNL. CM is working on SNF placement. Telemetry reviewed. vital signs Vital Sign Date Time Temp Pulse Resp B/P (MAP) Pulse Ox O2 Delivery O2 Flow Rate FiO2 05/31/25 10:01 139/84 05/31/25 09:00 98.0 71 16 95 98.0 05/31/25 08:00 Nasal Cannula* 2 28 Total Intake and Output 05/30/25 05/30/25 05/31/25 15:00 23:00 07:00 Intake Total 850 ml 1460 ml Output Total 900 ml 1500 ml Balance -50 ml -40 ml medications Current Medications Medications Dose Ordered Sig/Latasha Route Start Time Stop Time Status Last Admin Dose Admin Acetaminophen 650 mg Q6HP PRN PO 05/27/25 09:30 Hold Nitroglycerin 0.4 mg Q5MINP PRN SL 05/27/25 09:30 Morphine Sulfate 2 mg Q30M PRN IV 05/27/25 09:30 Morphine Sulfate 4 mg Q3HPRN PRN IV 05/27/25 09:30 05/30/25 22:28 4 MG Ondansetron HCl 4 mg Q4HPRN PRN IV 05/27/25 09:30 05/28/25 10:54 4 MG Diagnostic Test (Pha) 1 strip ACHS 05/27/25 22:00 05/31/25 06:24 1 STRIP Insulin Human Regular ACHS SC 05/27/25 22:00 05/31/25 06:23 3 UNITS Dextrose 50 ml UD PRN IV 05/27/25 19:30 Atorvastatin Calcium 20 mg HS PO 05/27/25 22:00 05/30/25 21:40 20 MG Lisinopril 5 mg DAILY PO 05/28/25 10:00 05/31/25 10:01 5 MG Sodium Chloride 1,000 ml @ 60 mls/hr [id number] IV 05/28/25 10:30 Hold 05/28/25 14:57 60 MLS/HR Lactated Ringer's 1,000 ml @ 100 mls/hr Q10H IV 05/29/25 08:30 05/31/25 06:41 100 MLS/HR Sodium Chloride 10 ml Q8HR IV 05/29/25 14:00 05/31/25 05:26 10 ML Enoxaparin Sodium 40 mg DAILY SC 05/30/25 10:00 05/31/25 10:01 40 MG Acetaminophen/ Hydrocodone Bitart 1 tab Q4HP PRN PO 05/29/25 08:30 05/31/25 10:00 1 TAB Docusate Sodium 100 mg TIDPRN PRN PO 05/30/25 12:30 05/30/25 13:50 100 MG objective GENERAL: Alert and oriented x 3. No acute distress. EYES: PERRL, EOMI. Anicteric. HENT: Moist mucous membranes. LUNGS: Clear to auscultation bilaterally. CARDIOVASCULAR: Regular rate and rhythm. ABDOMEN: Soft, non-tender and non-distended. EXTREMITIES: Decreased ROM, RLE TTP. NEUROLOGIC: No focal neurological deficits. SKIN: Warm, dry. laboratory and microbiology Laboratory Tests 05/30/25 06:44 Test 05/30/25 06:44 Range/Units Serum Glucose 221 H 74-106 mg/dL Problem List Right hip fracture. Hypertension. Diabetes mellitus. Dyslipidemia. Assessment/Plan Continued all current supportive medical care. DVT prophylactics. Lisinopril. [place] and Morphine for pain. Nitro SL. Additional plan as per the hospital course. Plan discussed with: Patient MIR WILSON MD May 31, 2025 13:01
[2025-06-01] VITALS (8 sets, daily range): BP systolic 134–143; BP diastolic 70–84; PULSE 65–82; RESP 16–90; TEMP 96.7–98.4; O2SAT 90–95
--- NOTE | 2025-06-01 14:24 | DVHPN2 ---
Progress Note Date Seen: Jun 01, 2025 Medical Necessity Reason Pt with a Central, PICC or Fol: No Subjective Review of Systems: CVS:Normal, RESPIRATORY:Normal, GI:Normal, :Normal, NEURO:Normal Objective vital signs Vital Sign Date Time Temp Pulse Resp B/P (MAP) Pulse Ox O2 Delivery O2 Flow Rate FiO2 06/01/25 09:57 140/76 06/01/25 09:00 96.7 69 90 92 96.7 06/01/25 07:40 Nasal Cannula* 2 28 Total Intake and Output 05/31/25 05/31/25 06/01/25 15:00 23:00 07:00 Intake Total 230 ml 2000 ml 500 ml Output Total 1200 ml 1750 ml Balance 230 ml 800 ml -1250 ml medications Current Medications Medications Dose Ordered Sig/Latasha Route Start Time Stop Time Status Last Admin Dose Admin Acetaminophen 650 mg Q6HP PRN PO 05/27/25 09:30 Hold Nitroglycerin 0.4 mg Q5MINP PRN SL 05/27/25 09:30 Morphine Sulfate 2 mg Q30M PRN IV 05/27/25 09:30 Morphine Sulfate 4 mg Q3HPRN PRN IV 05/27/25 09:30 05/31/25 21:08 4 MG Ondansetron HCl 4 mg Q4HPRN PRN IV 05/27/25 09:30 05/28/25 10:54 4 MG Diagnostic Test (Pha) 1 strip ACHS 05/27/25 22:00 06/01/25 12:52 1 STRIP Insulin Human Regular ACHS SC 05/27/25 22:00 06/01/25 12:52 2 UNITS Dextrose 50 ml UD PRN IV 05/27/25 19:30 Atorvastatin Calcium 20 mg HS PO 05/27/25 22:00 05/31/25 20:48 20 MG Lisinopril 5 mg DAILY PO 05/28/25 10:00 06/01/25 09:57 5 MG Sodium Chloride 1,000 ml @ 60 mls/hr [id number] IV 05/28/25 10:30 Hold 05/28/25 14:57 60 MLS/HR Lactated Ringer's 1,000 ml @ 100 mls/hr Q10H IV 05/29/25 08:30 05/31/25 20:52 100 MLS/HR Sodium Chloride 10 ml Q8HR IV 05/29/25 14:00 06/01/25 06:21 10 ML Enoxaparin Sodium 40 mg DAILY SC 05/30/25 10:00 06/01/25 09:57 40 MG Acetaminophen/ Hydrocodone Bitart 1 tab Q4HP PRN PO 05/29/25 08:30 05/31/25 10:00 1 TAB Docusate Sodium 100 mg TIDPRN PRN PO 05/30/25 12:30 05/30/25 13:50 100 MG Examination: GENERAL:Normal, LUNGS:Normal, CVS:Normal, ABDOMEN:Normal, SKIN:Normal, NEURO:Normal, :Normal laboratory and microbiology Laboratory Tests 05/30/25 06:44 Test 05/30/25 06:44 Range/Units Serum Glucose 221 H 74-106 mg/dL Labs and/or images reviewed: Labs reviewed by me, Image(s) reviewed by me Problem List/Assessment/Plan Problem List/Assessment/Plan 1. Right hip fracture Orthopedic consult, pain medication, DVT prophylaxis 2. Hypertension Continue lisinopril 5 mg 4. Hyperlipidemia Continue atorvastatin 20 5. Type 2 diabetes Insulin sliding scale Subjective: awake and alert Objective: Patient was admitted for right hip fracture. Patient is S/P ORIF of right hip fracture on 05/[address] Zapata. Patient has been working with physical therapy. Patient has been DC to SNF for PT, gearcase assembler is still working on SNF placement. Plan: Pain medication, Continue with physial therapy , insulin sliding scale, continue home meds, discharge to SNF Plan discussed with: Patient Date of Service: Jun 01, 2025 Billing Provider: NAHUM DUMONT MD Common Visit Codes: [id number] INP/OBS CARE (MOD) SPENCER ASCENCIO BIOMEDICAL EQUIPMENT SUPPORT SPECIALIST Jun 01, 2025 14:24
--- NOTE | 2025-06-01 23:50 | DVHPN2 ---
Progress Note - Dictate Date Seen: Jun 01, 2025 Medical Necessity Reason Pt with a Central, PICC or Fol: No Subjective Patient was seen and evaluated in follow up. Patient is complaining of right hip pain. BS in the 150s. Pending bed availability at [facility]. Telemetry reviewed. vital signs Vital Sign Date Time Temp Pulse Resp B/P (MAP) Pulse Ox O2 Delivery O2 Flow Rate FiO2 06/01/25 09:57 140/76 06/01/25 09:00 96.7 69 90 92 96.7 06/01/25 07:40 Nasal Cannula* 2 28 Total Intake and Output 05/31/25 05/31/25 06/01/25 15:00 23:00 07:00 Intake Total 230 ml 2000 ml 500 ml Output Total 1200 ml 1750 ml Balance 230 ml 800 ml -1250 ml medications Current Medications Medications Dose Ordered Sig/Latasha Route Start Time Stop Time Status Last Admin Dose Admin Acetaminophen 650 mg Q6HP PRN PO 05/27/25 09:30 Hold Nitroglycerin 0.4 mg Q5MINP PRN SL 05/27/25 09:30 Morphine Sulfate 2 mg Q30M PRN IV 05/27/25 09:30 Morphine Sulfate 4 mg Q3HPRN PRN IV 05/27/25 09:30 05/31/25 21:08 4 MG Ondansetron HCl 4 mg Q4HPRN PRN IV 05/27/25 09:30 05/28/25 10:54 4 MG Diagnostic Test (Pha) 1 strip ACHS 05/27/25 22:00 06/01/25 06:29 1 STRIP Insulin Human Regular ACHS SC 05/27/25 22:00 05/31/25 21:00 2 UNITS Dextrose 50 ml UD PRN IV 05/27/25 19:30 Atorvastatin Calcium 20 mg HS PO 05/27/25 22:00 05/31/25 20:48 20 MG Lisinopril 5 mg DAILY PO 05/28/25 10:00 06/01/25 09:57 5 MG Sodium Chloride 1,000 ml @ 60 mls/hr [id number] IV 05/28/25 10:30 Hold 05/28/25 14:57 60 MLS/HR Lactated Ringer's 1,000 ml @ 100 mls/hr Q10H IV 05/29/25 08:30 05/31/25 20:52 100 MLS/HR Sodium Chloride 10 ml Q8HR IV 05/29/25 14:00 06/01/25 06:21 10 ML Enoxaparin Sodium 40 mg DAILY SC 05/30/25 10:00 06/01/25 09:57 40 MG Acetaminophen/ Hydrocodone Bitart 1 tab Q4HP PRN PO 05/29/25 08:30 05/31/25 10:00 1 TAB Docusate Sodium 100 mg TIDPRN PRN PO 05/30/25 12:30 05/30/25 13:50 100 MG objective GENERAL: Alert and oriented x 3. No acute distress. EYES: PERRL, EOMI. Anicteric. HENT: Moist mucous membranes. LUNGS: Clear to auscultation bilaterally. CARDIOVASCULAR: Regular rate and rhythm. ABDOMEN: Soft, non-tender and non-distended. EXTREMITIES: Decreased ROM, RLE TTP. NEUROLOGIC: No focal neurological deficits. SKIN: Warm, dry. laboratory and microbiology Laboratory Tests 05/30/25 06:44 Test 05/30/25 06:44 Range/Units Serum Glucose 221 H 74-106 mg/dL Problem List Right hip fracture. Hypertension. Diabetes mellitus. Dyslipidemia. Assessment/Plan Continued all current supportive medical care. DVT prophylactics. Lisinopril. Morphine for pain. Nitro SL. Additional plan as per the hospital course. Plan discussed with: Patient MIR WILSON MD Jun 01, 2025 12:25
[2025-06-02] VITALS (8 sets, daily range): BP systolic 116–150; BP diastolic 69–96; PULSE 43–80; RESP 16–20; TEMP 96.3–98.8; O2SAT 90–91
--- NOTE | 2025-06-02 13:26 | DVHPN2 ---
Progress Note Date Seen: Jun 02, 2025 Medical Necessity Reason Pt with a Central, PICC or Fol: No Subjective Review of Systems: CVS:Normal, RESPIRATORY:Normal, GI:Normal, :Normal, NEURO:Normal Objective vital signs Vital Sign Date Time Temp Pulse Resp B/P (MAP) Pulse Ox O2 Delivery O2 Flow Rate FiO2 06/02/25 12:43 96.3 74 18 150/96 (114) 91 96.3 06/02/25 08:00 Room Air* 0 21 Total Intake and Output 06/01/25 06/01/25 06/02/25 15:00 23:00 07:00 Intake Total 466 ml 872 ml 710 ml Output Total 1450 ml 1200 ml Balance 466 ml -578 ml -490 ml medications Current Medications Medications Dose Ordered Sig/Latasha Route Start Time Stop Time Status Last Admin Dose Admin Acetaminophen 650 mg Q6HP PRN PO 05/27/25 09:30 Hold Nitroglycerin 0.4 mg Q5MINP PRN SL 05/27/25 09:30 Morphine Sulfate 2 mg Q30M PRN IV 05/27/25 09:30 Morphine Sulfate 4 mg Q3HPRN PRN IV 05/27/25 09:30 05/31/25 21:08 4 MG Ondansetron HCl 4 mg Q4HPRN PRN IV 05/27/25 09:30 05/28/25 10:54 4 MG Diagnostic Test (Pha) 1 strip ACHS 05/27/25 22:00 06/02/25 11:30 1 STRIP Insulin Human Regular ACHS SC 05/27/25 22:00 06/02/25 11:30 3 UNITS Dextrose 50 ml UD PRN IV 05/27/25 19:30 Atorvastatin Calcium 20 mg HS PO 05/27/25 22:00 06/01/25 21:14 20 MG Lisinopril 5 mg DAILY PO 05/28/25 10:00 06/02/25 09:54 5 MG Sodium Chloride 1,000 ml @ 60 mls/hr [id number] IV 05/28/25 10:30 Hold 05/28/25 14:57 60 MLS/HR Lactated Ringer's 1,000 ml @ 100 mls/hr Q10H IV 05/29/25 08:30 05/31/25 20:52 100 MLS/HR Sodium Chloride 10 ml Q8HR IV 05/29/25 14:00 06/02/25 06:07 10 ML Enoxaparin Sodium 40 mg DAILY SC 05/30/25 10:00 06/02/25 09:54 40 MG Acetaminophen/ Hydrocodone Bitart 1 tab Q4HP PRN PO 05/29/25 08:30 06/02/25 10:15 1 TAB Docusate Sodium 100 mg TIDPRN PRN PO 05/30/25 12:30 05/30/25 13:50 100 MG Examination: GENERAL:Normal, LUNGS:Normal, CVS:Normal, ABDOMEN:Normal, SKIN:Normal, NEURO:Normal laboratory and microbiology Laboratory Tests 05/30/25 06:44 Test 05/30/25 06:44 Range/Units Serum Glucose 221 H 74-106 mg/dL Labs and/or images reviewed: Labs reviewed by me, Image(s) reviewed by me Problem List/Assessment/Plan Problem List/Assessment/Plan 1. Right hip fracture Orthopedic consult, pain medication, DVT prophylaxis 2. Hypertension Continue lisinopril 5 mg 4. Hyperlipidemia Continue atorvastatin 20 5. Type 2 diabetes Insulin sliding scale Subjective: awake and alert Objective: Patient was admitted for right hip fracture. Patient is S/P ORIF of right hip fracture on 05/[address] Zapata. Patient has been working with physical therapy. Patient has been DC to SNF for PT since 05/31, casework manager is still working on SNF placement. Plan: Pain medication, Continue with physial therapy , insulin sliding scale, continue home meds, discharge to SNF Plan discussed with: Patient Dietary Evaluation Review Comments: 1) [facility] 60gm + cardiac diet 2) Refer Automotive Painter for diabetes education Expected Outcomes/Goals: To meet >75% estimated needs Fu 3-5 days Date of Service: Jun 02, 2025 Billing Provider: NAHUM DUMONT MD Common Visit Codes: [id number] INP/OBS CARE (MOD) SPENCER ASCENCIO [employer] Jun 02, 2025 13:26
--- NOTE | 2025-06-02 18:18 | DVHPN2 ---
Progress Note - Dictate Date Seen: Jun 02, 2025 Medical Necessity Reason Pt with a Central, PICC or Fol: No Subjective Patient was seen and evaluated in follow up. Patient is complaining of right hip discomfort. Patient is working with PT. CM is working on SNF placement. Telemetry reviewed. vital signs Vital Sign Date Time Temp Pulse Resp B/P (MAP) Pulse Ox O2 Delivery O2 Flow Rate FiO2 06/02/25 12:43 96.3 74 18 150/96 (114) 91 96.3 06/02/25 08:00 Room Air* 0 21 Total Intake and Output 06/01/25 06/01/25 06/02/25 15:00 23:00 07:00 Intake Total 466 ml 872 ml 710 ml Output Total 1450 ml 1200 ml Balance 466 ml -578 ml -490 ml medications Current Medications Medications Dose Ordered Sig/Latasha Route Start Time Stop Time Status Last Admin Dose Admin Acetaminophen 650 mg Q6HP PRN PO 05/27/25 09:30 Hold Nitroglycerin 0.4 mg Q5MINP PRN SL 05/27/25 09:30 Morphine Sulfate 2 mg Q30M PRN IV 05/27/25 09:30 Morphine Sulfate 4 mg Q3HPRN PRN IV 05/27/25 09:30 05/31/25 21:08 4 MG Ondansetron HCl 4 mg Q4HPRN PRN IV 05/27/25 09:30 05/28/25 10:54 4 MG Diagnostic Test (Pha) 1 strip ACHS 05/27/25 22:00 06/02/25 11:30 1 STRIP Insulin Human Regular ACHS SC 05/27/25 22:00 06/02/25 11:30 3 UNITS Dextrose 50 ml UD PRN IV 05/27/25 19:30 Atorvastatin Calcium 20 mg HS PO 05/27/25 22:00 06/01/25 21:14 20 MG Lisinopril 5 mg DAILY PO 05/28/25 10:00 06/02/25 09:54 5 MG Sodium Chloride 1,000 ml @ 60 mls/hr [id number] IV 05/28/25 10:30 Hold 05/28/25 14:57 60 MLS/HR Lactated Ringer's 1,000 ml @ 100 mls/hr Q10H IV 05/29/25 08:30 05/31/25 20:52 100 MLS/HR Sodium Chloride 10 ml Q8HR IV 05/29/25 14:00 06/02/25 06:07 10 ML Enoxaparin Sodium 40 mg DAILY SC 05/30/25 10:00 06/02/25 09:54 40 MG Acetaminophen/ Hydrocodone Bitart 1 tab Q4HP PRN PO 05/29/25 08:30 06/02/25 10:15 1 TAB Docusate Sodium 100 mg TIDPRN PRN PO 05/30/25 12:30 05/30/25 13:50 100 MG objective GENERAL: Alert and oriented x 3. No acute distress. EYES: PERRL, EOMI. Anicteric. HENT: Moist mucous membranes. LUNGS: Clear to auscultation bilaterally. CARDIOVASCULAR: Regular rate and rhythm. ABDOMEN: Soft, non-tender and non-distended. EXTREMITIES: Decreased ROM, RLE TTP. NEUROLOGIC: No focal neurological deficits. SKIN: Warm, dry. laboratory and microbiology Laboratory Tests 05/30/25 06:44 Test 05/30/25 06:44 Range/Units Serum Glucose 221 H 74-106 mg/dL Problem List Right hip fracture. Hypertension. Diabetes mellitus. Dyslipidemia. Assessment/Plan Continued all current supportive medical care. DVT prophylactics. Lisinopril. Morphine for pain. Nitro SL. Additional plan as per the hospital course. Dietary Evaluation Review Comments: 1) [facility] 2) Refer Cleaning Associate for diabetes education Expected Outcomes/Goals: To meet >75% estimated needs Fu 3-5 days Plan discussed with: Patient MIR WILSON MD Jun 02, 2025 13:26
[2025-06-03] VITALS (8 sets, daily range): BP systolic 130–155; BP diastolic 68–87; PULSE 64–83; RESP 15–20; TEMP 97.5–98.5; O2SAT 89–99
--- NOTE | 2025-06-03 12:14 | DVHPN2 ---
Progress Note - Dictate Date Seen: Jun 03, 2025 Medical Necessity Reason Pt with a Central, PICC or Fol: No Subjective Patient was seen and evaluated in follow up. No overnight events. Patient is resting in bed. Patient is pending SNF placement. Patient is cardiac stable for discharge. Telemetry reviewed. vital signs Vital Sign Date Time Temp Pulse Resp B/P (MAP) Pulse Ox O2 Delivery O2 Flow Rate FiO2 06/03/25 09:53 140/68 06/03/25 09:00 98.5 83 18 90 98.5 06/03/25 08:00 Room Air* 0 21 Total Intake and Output 06/02/25 06/02/25 06/03/25 15:00 23:00 07:00 Intake Total 440 ml 500 ml Output Total 1300 ml Balance 440 ml -800 ml medications Current Medications Medications Dose Ordered Sig/Latasha Route Start Time Stop Time Status Last Admin Dose Admin Acetaminophen 650 mg Q6HP PRN PO 05/27/25 09:30 Hold Nitroglycerin 0.4 mg Q5MINP PRN SL 05/27/25 09:30 Morphine Sulfate 2 mg Q30M PRN IV 05/27/25 09:30 Morphine Sulfate 4 mg Q3HPRN PRN IV 05/27/25 09:30 05/31/25 21:08 4 MG Ondansetron HCl 4 mg Q4HPRN PRN IV 05/27/25 09:30 05/28/25 10:54 4 MG Diagnostic Test (Pha) 1 strip ACHS 05/27/25 22:00 06/03/25 05:59 1 STRIP Insulin Human Regular ACHS SC 05/27/25 22:00 06/03/25 06:21 2 UNITS Dextrose 50 ml UD PRN IV 05/27/25 19:30 Atorvastatin Calcium 20 mg HS PO 05/27/25 22:00 06/02/25 21:50 20 MG Lisinopril 5 mg DAILY PO 05/28/25 10:00 06/03/25 09:53 5 MG Sodium Chloride 10 ml Q8HR IV 05/29/25 14:00 06/03/25 05:58 10 ML Enoxaparin Sodium 40 mg DAILY SC 05/30/25 10:00 06/03/25 09:52 40 MG Acetaminophen/ Hydrocodone Bitart 1 tab Q4HP PRN PO 05/29/25 08:30 06/03/25 10:07 1 TAB Docusate Sodium 100 mg TIDPRN PRN PO 05/30/25 12:30 05/30/25 13:50 100 MG objective GENERAL: Alert and oriented x 3. No acute distress. EYES: PERRL, EOMI. Anicteric. HENT: Moist mucous membranes. LUNGS: Clear to auscultation bilaterally. CARDIOVASCULAR: Regular rate and rhythm. ABDOMEN: Soft, non-tender and non-distended. EXTREMITIES: Decreased ROM, RLE TTP. NEUROLOGIC: No focal neurological deficits. SKIN: Warm, dry. laboratory and microbiology Laboratory Tests 05/30/25 06:44 Test 05/30/25 06:44 Range/Units Serum Glucose 221 H 74-106 mg/dL Problem List Right hip fracture. Hypertension. Diabetes mellitus. Dyslipidemia. Assessment/Plan Continued all current supportive medical care. Morphine and [place] for pain. Lipitor. DVT prophylactics. Lisinopril. Nitro SL. Additional plan as per the hospital course. Dietary Evaluation Review Comments: 1) [facility] 2) Refer Criminal Profiler for diabetes education Expected Outcomes/Goals: To meet >75% estimated needs Fu 3-5 days Plan discussed with: Patient MIR WILSON MD Jun 03, 2025 12:14
--- NOTE | 2025-06-03 16:20 | DVHPN2 ---
Progress Note - Dictate Date Seen: Jun 03, 2025 Medical Necessity Reason Pt with a Central, PICC or Fol: No vital signs Vital Sign Date Time Temp Pulse Resp B/P (MAP) Pulse Ox O2 Delivery O2 Flow Rate FiO2 06/03/25 12:47 98.3 70 18 130/74 (92) 90 98.3 06/03/25 08:00 Room Air* 0 21 Total Intake and Output 06/02/25 06/02/25 06/03/25 15:00 23:00 07:00 Intake Total 440 ml 500 ml Output Total 1300 ml Balance 440 ml -800 ml medications Current Medications Medications Dose Ordered Sig/Latasha Route Start Time Stop Time Status Last Admin Dose Admin Acetaminophen 650 mg Q6HP PRN PO 05/27/25 09:30 Hold Nitroglycerin 0.4 mg Q5MINP PRN SL 05/27/25 09:30 Morphine Sulfate 2 mg Q30M PRN IV 05/27/25 09:30 Morphine Sulfate 4 mg Q3HPRN PRN IV 05/27/25 09:30 05/31/25 21:08 4 MG Ondansetron HCl 4 mg Q4HPRN PRN IV 05/27/25 09:30 05/28/25 10:54 4 MG Diagnostic Test (Pha) 1 strip ACHS 05/27/25 22:00 06/03/25 11:30 1 STRIP Insulin Human Regular ACHS SC 05/27/25 22:00 06/03/25 11:30 4 UNITS Dextrose 50 ml UD PRN IV 05/27/25 19:30 Atorvastatin Calcium 20 mg HS PO 05/27/25 22:00 06/02/25 21:50 20 MG Lisinopril 5 mg DAILY PO 05/28/25 10:00 06/03/25 09:53 5 MG Sodium Chloride 10 ml Q8HR IV 05/29/25 14:00 06/03/25 13:49 10 ML Enoxaparin Sodium 40 mg DAILY SC 05/30/25 10:00 06/03/25 09:52 40 MG Acetaminophen/ Hydrocodone Bitart 1 tab Q4HP PRN PO 05/29/25 08:30 06/03/25 10:07 1 TAB Docusate Sodium 100 mg TIDPRN PRN PO 05/30/25 12:30 05/30/25 13:50 100 MG objective General Appearance: alert, no distress HEENT: EOMI, PERRLA, normal external inspect of ears, no icterus, no nasal drainage Neck: no carotid bruit, no jugular venous distention (JVD), no lymphadenopathy Chest: normal thorax Respiratory: clear to auscultation, normal air movement Cardiovascular: regular rate and rhythm, no diastolic murmur, no jugular venous distention (JVD), no rub, no systolic murmur Abdominal: soft, no hepatomegaly, no mass, no splenomegaly, no tenderness Genitourinary: grossly normal external Musculoskeletal: no joint tenderness, no swelling Extremities: normal pulses, no calf tenderness, no clubbing, no cyanosis, no edema Skin: no bruising, no jaundice, no rash Neurological: alert, No focal deficit laboratory and microbiology Laboratory Tests 05/30/25 06:44 Test 05/30/25 06:44 Range/Units Serum Glucose 221 H 74-106 mg/dL Problem List 1. Right hip fracture Orthopedic consult, pain medication, DVT prophylaxis, monitor 2. Hypertension Continue lisinopril 5 mg, monitor 4. Hyperlipidemia Continue atorvastatin 20, monitor Assessment/Plan Subjective Patient is awake and alert. Objective Patient was admitted status post fall. Patient had sustained a right hip fracture. Patient is status post right hip ORIF by Doctor Justa. Patient was scheduled for discharge to a half-way facility, however, she stated [place] was too far, being over 100 miles away. 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 Plan Continue high cholesterol medication with Lipitor for hyperlipidemia. Continue lisinopril for hypertension. Continue insulin sliding scale for diabetes type two. Continue PRN medication status post ORIF of her right hip and continue physical therapy. Patient stated she was able to emulate to nurses station. Dietary Evaluation Review Comments: 1) [facility] 2) Refer Assistant Scientist for diabetes education Expected Outcomes/Goals: To meet >75% estimated needs Fu 3-5 days Plan discussed with: Patient, Other LITO WATSON NP Jun 03, 2025 16:20
[2025-06-04 01:00] VITALS: BP 153/88; PULSE 67; RESP 14; TEMP 97.5; O2SAT 94
[2025-06-04 05:00] VITALS: BP 143/80; PULSE 74; RESP 14; TEMP 96.5; O2SAT 91
[2025-06-04 08:00] VITALS: PULSE 68
[2025-06-04 08:30] VITALS: PULSE 64; RESP 19; O2SAT 92
[2025-06-04 08:46] VITALS: BP 145/83; PULSE 64; RESP 19; TEMP 97.6; O2SAT 92
--- NOTE | 2025-06-04 12:03 | DVHPN2 ---
Progress Note - Dictate Medical Necessity Reason Pt with a Central, PICC or Fol: No vital signs Vital Sign Date Time Temp Pulse Resp B/P (MAP) Pulse Ox O2 Delivery O2 Flow Rate FiO2 06/04/25 09:29 145/83 06/04/25 09:28 64 19 06/04/25 08:46 97.6 92 97.6 06/03/25 20:00 Room Air* 0 21 Total Intake and Output 06/03/25 06/03/25 06/04/25 15:00 23:00 07:00 Intake Total 640 ml 350 ml Output Total 1550 ml Balance -910 ml 350 ml medications Current Medications Medications Dose Ordered Sig/Latasha Route Start Time Stop Time Status Last Admin Dose Admin Acetaminophen 650 mg Q6HP PRN PO 05/27/25 09:30 Hold Nitroglycerin 0.4 mg Q5MINP PRN SL 05/27/25 09:30 Morphine Sulfate 2 mg Q30M PRN IV 05/27/25 09:30 Morphine Sulfate 4 mg Q3HPRN PRN IV 05/27/25 09:30 06/04/25 09:28 4 MG Ondansetron HCl 4 mg Q4HPRN PRN IV 05/27/25 09:30 05/28/25 10:54 4 MG Diagnostic Test (Pha) 1 strip ACHS 05/27/25 22:00 06/04/25 06:45 1 STRIP Insulin Human Regular ACHS SC 05/27/25 22:00 06/04/25 06:48 2 UNITS Dextrose 50 ml UD PRN IV 05/27/25 19:30 Atorvastatin Calcium 20 mg HS PO 05/27/25 22:00 06/03/25 21:34 20 MG Lisinopril 5 mg DAILY PO 05/28/25 10:00 06/04/25 09:29 5 MG Sodium Chloride 10 ml Q8HR IV 05/29/25 14:00 06/04/25 06:45 10 ML Enoxaparin Sodium 40 mg DAILY SC 05/30/25 10:00 06/04/25 09:26 40 MG Acetaminophen/ Hydrocodone Bitart 1 tab Q4HP PRN PO 05/29/25 08:30 06/03/25 21:41 1 TAB Docusate Sodium 100 mg TIDPRN PRN PO 05/30/25 12:30 05/30/25 13:50 100 MG objective General Appearance: alert, no distress HEENT: EOMI, PERRLA, normal external inspect of ears, no icterus, no nasal drainage Neck: no carotid bruit, no jugular venous distention (JVD), no lymphadenopathy Chest: normal thorax Respiratory: clear to auscultation, normal air movement Cardiovascular: regular rate and rhythm, no diastolic murmur, no jugular venous distention (JVD), no rub, no systolic murmur Abdominal: soft, no hepatomegaly, no mass, no splenomegaly, no tenderness Genitourinary: grossly normal external Musculoskeletal: no joint tenderness, no swelling Extremities: normal pulses, no calf tenderness, no clubbing, no cyanosis, no edema Skin: no bruising, no jaundice, no rash Neurological: alert, No focal deficit laboratory and microbiology Laboratory Tests 05/30/25 06:44 Test 05/30/25 06:44 Range/Units Serum Glucose 221 H 74-106 mg/dL Problem List 1. Right hip fracture Orthopedic consult, pain medication, DVT prophylaxis, monitor 2. Hypertension Continue lisinopril 5 mg, monitor 4. Hyperlipidemia Continue atorvastatin 20, monitor Assessment/Plan Subjective Patient is awake and alert. Objective Patient was admitted status post fall. Patient had sustained a right hip fracture. Patient is status post right hip ORIF by Doctor Justa. Patient was scheduled for discharge to a [facility] facility, however, she stated [place] was too far, being over 100 miles away. 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 Plan Continue high cholesterol medication with Lipitor for hyperlipidemia. Continue lisinopril for hypertension. Continue insulin sliding scale for diabetes type two. Continue PRN medication status post ORIF of her right hip and continue physical therapy. Patient stated she was able to emulate to nurses station. Dietary Evaluation Review Comments: 1) [facility] + cardiac diet 2) Refer Bail Bond Agent for diabetes education Expected Outcomes/Goals: To meet >75% estimated needs Fu 3-5 days LITO WATSON NP Jun 04, 2025 12:03
[2025-06-04 13:03] VITALS: BP 143/78; PULSE 77; RESP 18; TEMP 98.4; O2SAT 97
--- NOTE | 2025-06-04 13:10 | DVH ---
CHEST RADIOGRAPH Indication: sob Technique: Single frontal view of the chest was obtained Comparison: XY CHEST XRAY 1 VIEW on DOS: 05/28/25 FINDINGS: Lines and Tubes: None Lungs: No focal consolidation. Pleura: No effusion. No pneumothorax. Cardiomediastinal contours: Unremarkable Bones: No acute osseous abnormality. IMPRESSION: No acute cardiopulmonary disease.
[2025-06-04 13:42] LABS: Hematocrit 37.4 % (36.0-46.0); Hemoglobin 13.0 g/dL (12.2-16.2); Mean Corpuscular Hemoglobin 31.3 pg (28.0-32.0); Mean Corpuscular Volume 89.8 fL (80.0-100.0); Nucleated Red Blood Cells % 0.1 %
[2025-06-04 13:55] LABS: Alanine Aminotransferase 24 U/L (7-40); Albumin 3.6 g/dL (3.2-4.8); Alkaline Phosphatase 116 U/L (46-116); Anion Gap 7 (5-15); BUN/Creatinine Ratio 22.9 (10.0-20.0); Bilirubin, Total 1.2 mg/dL (0.2-1.0); Blood Urea Nitrogen 22 mg/dL (9-23); Calcium 9.8 mg/dL (8.7-10.4); Magnesium 1.7 mg/dL (1.6-2.6); Potassium 4.7 mmol/L (3.5-5.1)
[2025-06-04 14:10] LABS: Carbon Dioxide 32 mmol/L (20-31); Chloride 97 mmol/L (98-107); Glucose 208 mg/dL (74-106); Sodium 136 mmol/L (136-145); Total Protein 5.3 g/dL (5.7-8.2)
--- NOTE | 2025-06-04 21:17 | DVHDS2 ---
Discharge Summary Date of Admission May 27, 2025 at 09:45 Date of Discharge: May 31, 2025 Labs/Diagnostic Data: Laboratory Results Test 06/04/25 13:07 06/04/25 12:07 05/28/25 06:03 05/27/25 12:47 White Blood Count 10.2 10^3/uL (4.4-10.8) Red Blood Count 4.16 10^6/uL (4.0-5.20) Hemoglobin 13.0 g/dL (12.2-16.2) Hematocrit 37.4 % (36.0-46.0) Mean Corpuscular Volume 89.8 fL (80.0-100.0) Mean Corpuscular Hemoglobin 31.3 pg (28.0-32.0) Mean Corpuscular Hemoglobin Concent 34.9 g/dL (32.0-36.0) Red Cell Distribution Width 13.6 % (11.8-14.3) Platelet Count 621 10^3/uL (140-450) Mean Platelet Volume 6.9 fL (6.9-10.8) Neutrophils (%) (Auto) 68.3 % (37.0-80.0) Lymphocytes (%) (Auto) 23.4 % (10.0-50.0) Monocytes (%) (Auto) 5.3 % (0.0-12.0) Eosinophils (%) (Auto) 2.5 % (0.0-7.0) Basophils (%) (Auto) 0.5 % (0.0-2.0) Neutrophils # (Auto) 7.0 10 ^3/uL (1.6-8.6) Lymphocytes # (Auto) 2.4 10 ^3/uL (0.4-5.4) Monocytes # (Auto) 0.5 10 ^3/uL (0-1.3) Eosinophils # (Auto) 0.3 10 ^3/uL (0-0.8) Basophils # (Auto) 0.1 10 ^3/uL (0-0.2) Nucleated Red Blood Cells 0.1 % Sodium Level 136 mmol/L (136-145) Potassium Level 4.7 mmol/L (3.5-5.1) Chloride Level 97 mmol/L (98-107) Carbon Dioxide Level 32 mmol/L (20-31) Anion Gap 7 (5-15) Blood Urea Nitrogen 22 mg/dL (9-23) Creatinine 0.96 mg/dL (0.550-1.02) Glomerular Filtration Rate Calc 62 mL/min (>90) BUN/Creatinine Ratio 22.9 (10.0-20.0) Serum Glucose 208 mg/dL (74-106) Calcium Level 9.8 mg/dL (8.7-10.4) Magnesium Level 1.7 mg/dL (1.6-2.6) Total Bilirubin 1.2 mg/dL (0.2-1.0) Aspartate Amino Transferase (AST) 16 U/L (13-40) Alanine Aminotransferase (ALT) 24 U/L (7-40) Alkaline Phosphatase 116 U/L (46-116) B-Type Natriuretic Peptide 31.86 pg/mL (0-100) Total Protein 5.3 g/dL (5.7-8.2) Albumin 3.6 g/dL (3.2-4.8) POC Glucose 160 mg/dl (70-106) Prothrombin Time 10.9 sec (9.3-11.8) Prothrombin Time INR 1.03 (0.9-1.15) Activated Partial Thromboplast Time 29.9 SEC (24.5-34.5) Troponin I High Sensitivity 4 ng/L (</=34) Test 05/27/25 09:18 Urine Color Yellow (Yellow) Urine Clarity Clear (Clear) Urine pH 5.5 (5.0-9.0) Urine Specific [place] 1.025 (1.001-1.035) Urine Protein Negative (Negative) Urine Ketones Negative (Negative) Urine Blood Negative /uL (Negative) Urine Nitrite Negative (Negative) Urine Bilirubin Negative (Negative) Urine Urobilinogen Normal mg/dL (Negative) Urine Leukocyte Esterase Negative /uL (Negative) Urine RBC 1 /hpf (0 - 4) Urine Microscopic WBC 1 /HPF (0-5) Urine Squamous Epithelial Cells Few /hpf (<5) Urine Bacteria None seen /hpf (None Seen) Urine Mucus Few (None Seen) Urine Glucose Normal mg/dL (Normal) Other Laboratory Tests 06/04/25 13:07 Brief Hx & Hospital Course: 74-year-old female presents to the ED for chief complaint of right hip pain S/P mechanical fall. Patient tripped and fell outside in her yd and landed on her right hip. Patient denies any head trauma neck or back pain. Patient was admitted on May 27, 2025 status post fall. Patient sustained a hip fracture and is status post ORIF. Patient has been working well with physical therapy. She remains weak and continues to need constant supervision and care. Patient was seen by physical therapy. Patient was deemed a candidate for rehab. Repeat chest x-ray and labs were stable. Patient was successfully weaned off of oxygen. Patient had acute hypoxic respiratory failure after surgery. Patient has now remained on room air and has been able to ambulate to the nurses station with physical therapy. Patient will discharge to [facility] and is to continue rehab. Patient wanted to have home health upon discharge. She was instructed to follow-up with her pcp in 1 week. The patient received proper medical treatment and medications. Vital signs, Imaging and Laboratory Work was monitored daily. All consults recommendations were followed as provided. There were no complaints or new complaints upon discharge, all questions and concerns were answered. Patient was advised to return to the ER or call 911 if any headaches, dizziness, shortness of breath, chest pain, bleeding, fevers, or worsening of medical condition. Patient/Family was counseled about treatment plan, medications, possible side effects, patient verbalized understanding. All questions were answered to the best of my ability. The patient symptoms improved and they are okay to be DC. Condition at Discharge: Stable Final Diagnosis/Problems List Right hip fracture Hypertension Hyperlipidemia Type 2 diabetes Acute hypoxic respiratory failure 4. Hyperlipidemia 5. Type 2 diabetes Discharge Disposition: [facility] Discharge Instruct/Medications Diet: Consistent carbohydrate Activity: Light activity Follow Up/Referral: orthopedic within 2 weeks Scheduled Atorvastatin Calcium (Atorvastatin Calcium), 1 TAB PO DAILY, (Reported) Cholecalciferol (Vitamin D), 5,000 UNIT OR DAILY, (Reported) Metformin Hydrochloride (Metformin Hcl), 500 MG PO DAILY, (Reported) Discharge Statement: "Patient was advised to return to the ER or call 911 if any headaches, dizziness, shortness of breath, chest pain, abdominal pain, bleeding, fevers, or worsening of medical condition. Patient was counseled about treatment plan, medications, possible side effects, patientverbalized understanding. All questions were answered to the best of my ability. This discharge took greater then 30 minutes in planning, reviewing documentation, counseling the patient, and discussing with other team members." ASSESSMENT ASSESSMENT Assessment 1. Right hip fracture 2. Hypertension 4. Hyperlipidemia 5. Type 2 diabetes LITO WATSON NP Jun 04, 2025 21:17
--- NOTE | 2025-06-04 21:57 | DVHPN2 ---
Progress Note - Dictate Date Seen: Jun 04, 2025 Medical Necessity Reason Pt with a Central, PICC or Fol: No Subjective Patient was seen and evaluated in follow up. Patient has no new complaints at this time. Patient denies any cardiac symptoms. Patient is cardiac stable for discharge. Telemetry reviewed. vital signs Vital Sign Date Time Temp Pulse Resp B/P (MAP) Pulse Ox O2 Delivery O2 Flow Rate FiO2 06/04/25 13:03 98.4 77 18 143/78 (99) 97 98.4 06/04/25 08:30 Room Air* 0 21 Total Intake and Output 06/03/25 06/03/25 06/04/25 15:00 23:00 07:00 Intake Total 640 ml 350 ml Output Total 1550 ml Balance -910 ml 350 ml objective GENERAL: Alert and oriented x 3. No acute distress. EYES: PERRL, EOMI. Anicteric. HENT: Moist mucous membranes. LUNGS: Clear to auscultation bilaterally. CARDIOVASCULAR: Regular rate and rhythm. ABDOMEN: Soft, non-tender and non-distended. EXTREMITIES: Decreased ROM, RLE TTP. NEUROLOGIC: No focal neurological deficits. SKIN: Warm, dry. laboratory and microbiology Laboratory Tests 06/04/25 13:07 Test 06/04/25 13:07 Range/Units Serum Glucose 208 H 74-106 mg/dL Problem List Right hip fracture. Hypertension. Diabetes mellitus. Dyslipidemia. Assessment/Plan Continued all current supportive medical care. Morphine and [place] for pain. Lipitor. DVT prophylactics. Lisinopril. Nitro SL. Additional plan as per the hospital course. Dietary Evaluation Review Comments: 1) [facility] 60[facility] + cardiac diet 2) Refer [employer] for diabetes education Expected Outcomes/Goals: To meet >75% estimated needs Fu 3-5 days Plan discussed with: Patient MIR WILSON MD Jun 04, 2025 21:57
--- NOTE | 2025-06-23 10:56 | ECG ---
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
== END 2025-06-04 18:40 | DRG 480 ==
LOC: ER 20:55 → EDBD 20:55 → OVERFLOW 05-27 09:45 → TELE-WESTW 05-27 09:45
PROVIDERS: ADMIT Nurse Practitioner Family; ATTEND Nurse Practitioner Family
PROC: 0QS636Z Reposition Right Upper Femur with Intramedullary Internal Fixation Device, Percutaneous Approach (ICD-10-PCS; principal; 2025-05-29 07:17)
DX: S72.141A Displaced intertrochanteric fracture of right femur, initial encounter for closed fracture (principal); J96.01 Acute respiratory failure with hypoxia; S72.002A Fracture of unspecified part of neck of left femur, initial encounter for closed fracture; I10 Essential (primary) hypertension; E78.5 Hyperlipidemia, unspecified; F17.210 Nicotine dependence, cigarettes, uncomplicated; E11.9 Type 2 diabetes mellitus without complications; Z79.899 Other long term (current) drug therapy; W01.0XXA Fall on same level from slipping, tripping and stumbling without subsequent striking against object, initial encounter; Y93.89 Activity, other specified; Y92.89 Other specified places as the place of occurrence of the external cause; Y99.8 Other external cause status
CPT/HCPCS: 36415; 71045; 72192; 73502; 76000; 80048; 80053; 81001; 82962; 83735; 83880; 84484; 85025; 85610; 85730; 86850; 86900; 86901; 93005; 97110; 97116; 97163; 97530; A6198; G0378; J0131; J1100; J1815; J2003; J2250; J2405; J2704; J3490